=== PATIENT | female | born 1985 | race Caucasian/White ===

== ENCOUNTER → 2024-04-30 12:53 | Outpatient (REF) | payer OTHER, SELFPAY | LOC: RAD 12:53 | PROVIDERS: ATTENDING PHYSICIAN Nurse Practitioner | DX: N20.0 Calculus of kidney (principal) | CPT/HCPCS: 74176 ==

== ENCOUNTER 2024-06-07 12:28 | Inpatient (IN) | payer OTHER, SELFPAY ==
[2024-06-07 09:54] VITALS: BP 113/87; BP_SYST 80
[2024-06-07 10:40] LABS: Hematocrit 28.7 % (37.0-47.0); Hemoglobin 8.7 g/dL (12.0-16.0); Mean Corp Hgb Conc. 30.3 g/dL (33.0-37.0); Mean Corpuscular Hgb 21.4 pg (27.0-31.0); Mean Corpuscular Volume 70.5 fL (81.0-99.0); Mean Platelet Volume 10.4 fL (7.4-10.4); Platelet Count 338 10^3/uL (130-400); Red Blood Cell Count 4.07 10^6/uL (4.20-5.40); Red Cell Dist. Width 17.1 % (11.5-14.5); White Blood Cell Count 5.7 10^3/uL (4.8-10.8)
[2024-06-07 10:50] LABS: INR 1.03; PT 13.6 Sec (11.4-14.6)
[2024-06-07] MEDS: ROCEPHIN 2000 MG IV (12:10)
[2024-06-07] MEDS: STERILE WATER FOR INJECTION 20 ML IV (12:10)
[2024-06-07 15:31] VITALS: BP 110/79
--- NOTE | 2024-06-07 15:59 | HP.FOC2 ---
Focused History & Physical
Chief Complaint
HPI:
Chief Complaint: encrusted/retained left ureteral stent
HPI / Indication for Planned Procedure:
39F currently incarcerated @[facility] admitted after IR procedure earlier today for left nephrostomy tube placement.
H/o encrusted and retained ureteral stent after initial placement in 2021 (urologist @[facility]) in context of urosepsis and obstructing 4 mm left ureteral stone.
Left stent subsequently exchanged - but due to social factors and eventual incarceration, she had no urologic F/U.
Seen by me in 2022 w/ retained left ureteral stent and rUTIs.
05/02/23: s/p cystolitholapaxy (fragmented of bladder stone around distal curl, laser transection of distal curl), left URS/laser lithotripsy, 2nd left ureteral stent placement.
Unable to F/U due to being discharged from incarceration w/o reliable contact information.
Re-incarcerated @[facility] in early 2023.
CT imaging demonstrated severe left hydronephrosis, left ureteral stents x2, 4 mm left ureteral stone, and bladder stone (distal curls of stents).
MDR UTIs (ESBL) noted on prior UCx.
Relevant Past Medical History: Other (nephrolithiasis, rUTIs)
Relevant Social History: Substance Abuse and Tobacco Use
Relevant Family History: Negative
Relevant Past Surgical History: Negative
Review of Systems
Review of Pertinent Systems: All Systems Negative
Medication
See Medication form for detailed medications: Yes
Medication List (including Herbals & OTC):
mirtazapine 15 mg tablet (Remeron) 15 mg PO HS 04/28/23
nitrofurantoin monohydrate/macrocrystals 100 mg capsule (Macrobid) 100 mg PO BID 04/28/23
buprenorphine HCl 8 mg sublingual tablet 16 mg sublingual DAILY 05/29/24
famotidine 20 mg tablet 20 mg PO BID PRN heartburn 05/29/24
acetaminophen 325 mg tablet 325 mg PO ONCE PRN pain 06/05/24
hydroxyzine pamoate 50 mg capsule 50 mg PO BID PRN anxiety 06/05/24
Medications Reviewed: Yes
Allergies and Reactions
Patient has Allergies: No
Noted Allergies and Reactions:
Allergy/AdvReac Type Severity Reaction Status Date / Time
No Known Allergies Allergy Verified 05/29/24 15:02
Pertinent Physical Exam
All Other Systems: Negative
Head/Neck: Normal
Lungs: Normal
Heart: Normal
Abdomen: Normal
Extremities: Normal
Neurological: Normal
Diagnosis / Assessment
Severe left hydronephrosis w/ parenchymal thinning
Encrusted/retained left ureteral stent
Bladder stone
s/p IR placement of left PCN today (06/07)
Plan / Procedure
- Admit to Urology
- regular diet, NPO@MN
- analgesics prn
- Maintain left nephrostomy to drainage bag
- ID consult for antibiosis guidance
- To OR tomorrow afternoon for cystolitholapaxy, laser lithotripsy
D/w patient in room this afternoon.
D/w RN.
Anesthesia/Sedation to be done by Anesthesia Provider: Yes
[2024-06-07] MEDS: ULTRAM 50 MG PO ×2 (16:44→23:02)
--- NOTE | 2024-06-07 17:05 | CON.ID ---
Consultation
-
Date/Time Consultation Requested: 06/07/2024 1605
Date/Time Consultation Performed: 06/07/2024 1650
Requesting Provider: Dr. Chakraborty
Performing Provider: Dr. Rivas
Reason for Consultation: Hx ESBL E. coli; retained ureteral stents
Chief Complaint / Past History
History of Present Illness
Karen Waddell is a 39-year-old female being evaluated the request of Dr. Chakraborty regarding a history of ESBL E. coli and retained ureteral stents. History is obtained from chart review, along with patient interview.
The patient reports that she developed obstructive uropathy approximately 2 years ago and was seen at [facility] where stents were placed. The initial stent was changed approximately 3 months later, but that stent appears to have remained
in place. Unfortunately, she had no urologic follow-up thereafter, and was eventually incarcerated. She was seen by Urology here at [facility] and underwent cystolitholapaxy withfragmented of bladder stone around distal curl, laser
transection of distal curl. She again was lost to follow-up following discharge and subsequent incarceration. She was reincarcerated in 2023 and has again been evaluated by urology and requires stent removal. Today, a left PCN was placed in
anticipation of surgery tomorrow to remove the ureteral stent.
At present, she denies any fevers or chills. She notes that she has been on chronic Macrobid at least since January in order to keep the infection at bay. She denies any current fevers or chills. She denies any dysuria. She denies any significant
back discomfort.
Past History
Additional Past Medical History:
Obstructive uropathy
Nephrolithiasis
Additional Past Surgical History:
Ureteral stent placement
Tubal ligation
Allergy History:
No Known Allergies Allergy (Verified 05/29/24 15:02)
Medications Reviewed: Yes
Current Antibiotics:
None
Social History
Tobacco: Smoker (1/2 PPD)
Alcohol: None
Drug: Former User
Personal: Single
Living: Group Home
Employment: Not Employed
Family History
Family History: Not Pertinent
Review of Systems
Vital Signs
Temp Pulse Resp BP Pulse Ox
98.5 F 87 15 110/79 99
06/07/24 15:31 06/07/24 15:31 06/07/24 15:31 06/07/24 15:31 06/07/24 15:31
Physical Exam
Physical Exam
Constitutional: No Acute Distress, Comfortable and Non-toxic
Head: Normocephalic
Eyes: Pupils Equal, Pupils Round, No Conjunctival Hemorrhage and Sclera Anicteric
Pharynx: Benign
Oral: Poor Dentition, No Thrush and No Ulcers
Cardiovascular: Regular Rate and S1/S2; Negative S3/S4
Pulmonary: Clear; Negative Wheezes, Rales or Rhonchi
Gastrointestinal: Soft, Non Tender, Non Distended and Normal Bowel Sounds
Genito-Urinary: Other (left PCN in place. Scant urine.); Negative Ray
Extremities: Negative Edema, Cyanosis or Erythema
Skin: Warm and Dry; Negative Rash or Jaundice
Neurological: Awake and Alert
Psychological: Calm
.
Lab / Diagnostic Study Results
06/07/24 10:29
PT 13.6 Sec (11.4-14.6) 06/07/24 10:29
INR 1.03 06/07/24 10:29
Microbiology Results
Micro:
06/07/24 12:30 Urine Culture - Pending
Urine
Wound/abscess/other Cult Final 05/06/23-9
Escherichia coli - ESBL*
Enterococcus faecalis
Organism 1 Escherichia coli - ESBL
Organism 2 Enterococcus faecalis
EC-ESBL ENTFCL
M.I.C. RX M.I.C. RX
--------- --- --------- ---
Amoxicillin/Potas. Clavulanate 16/8 I
Ampicillin >16 R <=2 S
Ampicillin/Sulbactam >16/8 R
Cefazolin >16 R
Cefepime >16 R
Ceftazidime >16 R
Ceftriaxone >2 R
Ertapenem <=0.5 S
Ciprofloxacin >2 R
Gentamicin <=4 S
Gentamicin Synergy Screen <=500 S
Levofloxacin >4 R
Meropenem <=1 S
Piperacillin/Tazobactam <=16 S
Tobramycin <=4 S
Trimethoprim/Sulfamethoxazole > R
Vancomycin 2 S
Imaging:
04/30/2024 CT abdomen/pelvis without contrast: Severe left hydronephrosis with cortical atrophy and surrounding inflammatory changes of the left kidney and proximal left ureter. One stent is malpositioned, with the proximal pigtail positioned in an
upper pole calyx and the distal aspect of the stent terminating in the distal ureter. The other left ureteral stent has its proximal portion positioned within the pelvis, however the distal portion within the bladder has significant
encrustation/calcification.
Assessment / Plan
Severe hydronephrosis
Encrusted/retained left ureteral stent
Recurrent urinary tract infections
Hx MDRO (ESBL E. coli)
Bladder stone
Hx obstructive uropathy
Nephrolithiasis
Recommendations:
Given history of ESBL, will begin meropenem in anticipation of tomorrow surgery.
Current urine culture is pending to guide further antimicrobial selection and potential de-escalation.
Monitor white count and temperature curve.
Further recommendations as additional data is returned.
Care Review
Plan reviewed with: Physician (Urology)
[2024-06-07] MEDS: ROXICODONE 5 MG PO (20:05)
[2024-06-07] MEDS: REMERON 15 MG PO (21:07)
[2024-06-07 23:00] VITALS: BP 123/76
[2024-06-07] MEDS: TYLENOL 650 MG PO (23:02)
[2024-06-07] MEDS: NSS 1000 IV (23:05)
[2024-06-08 00:09] LABS: Blood Urea Nitrogen 15 mg/dl (7-17); Calcium 9.5 mg/dl (8.4-10.2); Carbon Dioxide 22 mmol/L (22-30); Chloride 102 mmol/L (98-107); Estimated Creatinine Clearance 64 ml/min; Glucose 119 mg/dl (70-99); Potassium 5.1 mmol/L (3.5-5.1); Sodium 140 mmol/L (135-145); eGFR > 60.00
[2024-06-08 03:26] VITALS: BP 115/80
[2024-06-08] MEDS: ROXICODONE 5 MG PO ×3 (03:32→22:33)
[2024-06-08] MEDS: TYLENOL 1000 MG PO (03:35)
--- NOTE | 2024-06-08 03:56 | PTCARENOTE ---
at 2300 pt had a fever of 102.7. PRN 650 mg of tylenol was given. AT 0300 temperature was checked again and elevated at 100.2. SUMMER CHILD CAREGIVER made aware. stat order of 1000mg of tylenol ordered. cold compress applied to back of neck and PRN pain meds given. Pt
now resting. will continue to monitor.
[2024-06-08 07:15] LABS: % Basophils 0.3 % (0-2); % Eosinophils 0.3 % (0-6); % Immature Granulocytes 0.3 % (0-0.5); % Lymphocytes 8.4 % (20.5-51.1); % Neutrophils 85.7 % (42.2-75.2); Absolute Immature Granulocytes 0.1 10^3/uL (0-0.05); Absolute Lymphocytes 1.3 10^3/uL (1.2-3.4); Absolute Monocytes 0.7 10^3/uL (0.1-0.6); Absolute Neutrophils 12.8 10^3/uL (1.4-6.5); Hematocrit 28.7 % (37.0-47.0); Hemoglobin 8.8 g/dL (12.0-16.0); Mean Corp Hgb Conc. 30.7 g/dL (33.0-37.0); Mean Corpuscular Hgb 21.5 pg (27.0-31.0); Mean Platelet Volume 10.6 fL (7.4-10.4); Nucleated Red Blood Cells % 0 %; Platelet Count 349 10^3/uL (130-400); Red Cell Dist. Width 17.2 % (11.5-14.5); White Blood Cell Count 14.9 10^3/uL (4.8-10.8)
[2024-06-08] MEDS: SUBUTEX 16 MG SL (07:19)
[2024-06-08 07:25] VITALS: BP 99/61
[2024-06-08 07:42] LABS: Blood Urea Nitrogen 16 mg/dl (7-17); Carbon Dioxide 22 mmol/L (22-30); Chloride 102 mmol/L (98-107); Estimated Creatinine Clearance 64 ml/min; Glucose 112 mg/dl (70-99); Potassium 4.4 mmol/L (3.5-5.1); Sodium 137 mmol/L (135-145); eGFR > 60.00
--- NOTE | 2024-06-08 10:10 | CM ---
From [facility] - plan to return when medically ready
Went to IR yesterday for L neph tube placement
ID following
Call [facility] prior to d/c
Plan - return to [facility] when medically stable
R - [phone]
F - [phone]
[2024-06-08] MEDS: STERILE WATER FOR INJECTION 10 ML IV ×3 (11:23→22:28)
[2024-06-08] MEDS: MERREM 500 MG IV ×3 (11:24→22:28)
--- NOTE | 2024-06-08 11:56 | W.PN.ID1 ---
Date of Service
Date of Service: June 08, 2024
Today's Communication
Meropenem initiated. Await surgery.
Assessment / Plan
Severe hydronephrosis
Encrusted/retained left ureteral stent
Recurrent urinary tract infections
Hx MDRO (ESBL E. coli)
Bladder stone
Hx obstructive uropathy
Nephrolithiasis
Recommendations:
Given history of ESBL, meropenem initiated in anticipation of today's surgery.
Current urine culture is pending to guide further antimicrobial selection and potential de-escalation.
Monitor white count and temperature curve.
Further recommendations as additional data is returned.
Chief Complaint
-: Fever, Leukocytosis and UTI
Subjective / Review of Systems
Patient seen and examined. Feels well today, although did have some fevers overnight. Denies significant pain.
Vital Signs / Physical Exam
Vital Signs
Vital Signs
Temp Pulse Resp BP Pulse Ox
98.7 F 91 16 99/61 98
06/08/24 07:25 06/08/24 07:25 06/08/24 07:25 06/08/24 07:25 06/08/24 07:25
Physical Exam
Constitutional: No Acute Distress, Comfortable and Non-toxic
Eyes: Sclera Anicteric
Cardiovascular: S1/S2; Negative S3/S4
Pulmonary: Clear; Negative Wheezes, Rales or Rhonchi
Gastrointestinal: Soft, Non Tender and Non Distended
Genito-Urinary: Other (Left PCN in place with clear yellow urine.)
Extremities: Negative Edema, Cyanosis or Erythema
Neurological: AO x 3
Psychological: Calm
Objective Data
Lab Data
Lab Results
06/08/24 06:21
06/08/24 06:21
PT 13.6 Sec (11.4-14.6) 06/07/24 10:29
INR 1.03 06/07/24 10:29
Estimated Creat Clear 64 ml/min 06/08/24 06:21
Most recent labs reviewed.
Micro Results:
06/07/24 12:30 Urine Culture - Pending
Urine
Wound/abscess/other Cult Final 05/06/2023-1339
Escherichia coli - ESBL*
Enterococcus faecalis
Organism 1 Escherichia coli - ESBL
Organism 2 Enterococcus faecalis
EC-ESBL ENTFCL
M.I.C. RX M.I.C. RX
--------- --- --------- ---
Amoxicillin/Potas. Clavulanate 16/8 I
Ampicillin >16 R <=2 S
Ampicillin/Sulbactam >16/8 R
Cefazolin >16 R
Cefepime >16 R
Ceftazidime >16 R
Ceftriaxone >2 R
Ertapenem <=0.5 S
Ciprofloxacin >2 R
Gentamicin <=4 S
Gentamicin Synergy Screen <=500 S
Levofloxacin >4 R
Meropenem <=1 S
Piperacillin/Tazobactam <=16 S
Tobramycin <=4 S
Trimethoprim/Sulfamethoxazole >2/38 R
Vancomycin 2 S
Imaging:
04/30/2024 CT abdomen/pelvis without contrast: Severe left hydronephrosis with cortical atrophy and surrounding inflammatory changes of the left kidney and proximal left ureter. One stent is malpositioned, with the proximal pigtail positioned in an
upper pole calyx and the distal aspect of the stent terminating in the distal ureter. The other left ureteral stent has its proximal portion positioned within the pelvis, however the distal portion within the bladder has significant
encrustation/calcification.
--- NOTE | 2024-06-08 12:15 | W.SUR.PREOP ---
Pre-Operative Surgical Note
-
I have examined this patient prior to the performance of the scheduled procedure.
The patient's condition is unchanged from the time of the current History and
Physical and the patient is able to undergo the scheduled procedure.
IV Meropenem initiated by ID based on prior UCx S/S - h/o MDR UTIs.
- To OR for cystolitholapaxy, laser lithotripsy, laser amputation/fragmentation of ureteral stent(s)
- Maintain left PCN to drainage bag
- Continue IV Meropenem
D/w patient.
--- NOTE | 2024-06-08 14:30 | W.PN.URO.CBU ---
Addendum entered and electronically signed by Sekou Lovett MD 06/17/24 18:13:
No evidence of anemia - no specific diagnosis for hemoglobin/hematocrit changes noted other than post-procedural IV fluid administration and normal variability WITHOUT evidence of clinically significant bleeding (mild hematuria expected initially
s/p nephrostomy tube placement by IR).
2 SIRS criteria of fever (T >102F) and significant leukocytosis indicative of sepsis s/p left nephrostomy tube insertion in chronically infected and colonized left renal collecting system.
Original Note:
Today's Communication / Plan
-
OR plan today cancelled - will reschedule w/n 2-3 weeks
Continue IV Meropenem per ID
F/U left kidney UCx S/S
Case management consult ordered for IV antibiotic infusion @[facility]
Discussed plan of care w/ patient this afternoon.
Assessment / Plan
-
Severe left hydronephrosis secondary to encrusted/obstructed left ureteral stent
Encrusted/retained left ureteral stent
Bladder stone (formed around distal curl of stent)
H/o MDI rUTIs
Fevers
06/07: s/p left PCN placement (IR)
T 102.7 o/n
WBC >14
Cr WNL
Left kidney UCx => presumptive E. Coli (prelim)
Patient noted to have high fever w/ leukocytosis s/p PCN placement by IR for decompression of chronically obstructed left kidney.
IV Meropenem initiated by ID 06/07 based on prior MDR UCxs.
Tentative plan was for cystolitholapaxy and laser amputation/transection of distal curl(s) of left ureteral stents 06/08.
Due to concerns for potential urosepsis/bacteremia w/ instrumentation, will defer surgery today and complete treatment course of IV antibiotics as outpatient.
Diagnosis
-
Date of Service: June 09, 2024
-
Patient Diagnosis:
Severe left hydronephrosis secondary to encrusted/obstructed left ureteral stent
Encrusted/retained left ureteral stent
Bladder stone (formed around distal curl of stent)
H/o MDI rUTIs
Post Op Day:
06/07: s/p left PCN placement (IR)
Subjective
-
Febrile to 102.7 o/n requiring Tylenol.
Left PCN draining well - clearing urine.
Notes minimal appetite.
Objective
-
Vital Signs
Temp Pulse Resp BP Pulse Ox
99.0 F 108 16 120/65 97
06/09/24 01:22 06/08/24 23:27 06/08/24 23:27 06/08/24 23:27 06/08/24 23:27
Intake and Output
06/07/24 06/08/24 06/09/24
06:59 06:59 06:59
Intake Total 2060 / 2060 600 / 600
Output Total 260 / 260 550 / 550
Balance 1800 / 1800 50 / 50
Intake:
Oral fluids 1560 / 1560
IV fluids (Total) 500 / 500 600 / 600
NSS 100 / 100
Output:
Urinary Drain Output (Total) 260 / 260 250 / 250
Left Nephrostomy A 260 / 260 250 / 250
Urostomy output 300 / 300
Other:
Number of approximated MODERATE 2
amounts of urine
Number of approximated LARGE 1
amounts of urine
Physical Exam
-
General - well developed, well nourished, no acute distress
Abdomen - soft, non-tender, non-distended, left PCN draining to bag
Skin - warm & dry with no rash
Neuro - AOx3, no motor deficits
Extremities - no clubbing, no cyanosis, no edema
Care Review
Data Reviewed
Discussed with: Infectious Disease and Nursing
[2024-06-08] MEDS: TYLENOL 650 MG PO ×2 (15:41→23:02)
[2024-06-08 16:07] VITALS: BP 110/71
[2024-06-08] MEDS: NSS 1000 IV (17:25)
[2024-06-08] MEDS: REMERON 15 MG PO (22:28)
[2024-06-08 23:27] VITALS: BP 120/65
[2024-06-09] MEDS: MERREM 500 MG IV ×4 (04:24→21:25)
[2024-06-09] MEDS: STERILE WATER FOR INJECTION 10 ML IV ×4 (04:24→21:25)
[2024-06-09 07:26] LABS: % Basophils 0.5 % (0-2); % Eosinophils 2.1 % (0-6); % Immature Granulocytes 0.3 % (0-0.5); % Monocytes 8.7 % (1.7-9.3); % Neutrophils 73.4 % (42.2-75.2); Absolute Basophils 0.1 10^3/uL (0-0.2); Absolute Eosinophils 0.2 10^3/uL (0-0.7); Absolute Lymphocytes 1.4 10^3/uL (1.2-3.4); Absolute Monocytes 0.8 10^3/uL (0.1-0.6); Absolute Neutrophils 7.1 10^3/uL (1.4-6.5); Hematocrit 28.4 % (37.0-47.0); Hemoglobin 8.3 g/dL (12.0-16.0); Mean Corp Hgb Conc. 29.2 g/dL (33.0-37.0); Mean Corpuscular Hgb 21.1 pg (27.0-31.0); Mean Corpuscular Volume 72.1 fL (81.0-99.0); Mean Platelet Volume 11.1 fL (7.4-10.4); Nucleated Red Blood Cells % 0 %; Platelet Count 327 10^3/uL (130-400); Red Blood Cell Count 3.94 10^6/uL (4.20-5.40); Red Cell Dist. Width 17.2 % (11.5-14.5); White Blood Cell Count 9.6 10^3/uL (4.8-10.8)
[2024-06-09 07:36] VITALS: BP 114/71
[2024-06-09] MEDS: SUBUTEX 16 MG SL (07:47)
[2024-06-09 07:52] LABS: Blood Urea Nitrogen 14 mg/dl (7-17); Calcium 8.8 mg/dl (8.4-10.2); Carbon Dioxide 24 mmol/L (22-30); Chloride 105 mmol/L (98-107); Estimated Creatinine Clearance 80 ml/min; Glucose 87 mg/dl (70-99); Potassium 4.7 mmol/L (3.5-5.1); Sodium 142 mmol/L (135-145); eGFR > 60.00
[2024-06-09] MEDS: ULTRAM 50 MG PO ×2 (09:07→15:24)
--- NOTE | 2024-06-09 10:10 | W.PN.URO.CBU ---
Today's Communication / Plan
-
Discharge today on IV antibiotics (ID arranging for Primaxin)
Patient will follow with Dr. Lovett to make plans for removal of encrusted stone
Assessment / Plan
-
Severe left hydronephrosis secondary to encrusted/obstructed left ureteral stent
Encrusted/retained left ureteral stent
Bladder stone (formed around distal curl of stent)
H/o MDI rUTIs
Fevers
06/07: s/p left PCN placement (IR)
Cr WNL
Left kidney UCx => E. coli/Enterococcus
Patient noted to have high fever w/ leukocytosis s/p PCN placement by IR for decompression of chronically obstructed left kidney.
IV Meropenem initiated by ID 06/07 based on prior MDR UCxs.
Tentative plan was for cystolitholapaxy and laser amputation/transection of distal curl(s) of left ureteral stents 06/08.
Surgery was canceled due to concerns for complicatd UTI
Diagnosis
-
Date of Service: June 09, 2024
-
Patient Diagnosis:
Severe left hydronephrosis secondary to encrusted/obstructed left ureteral stent: s/p left nephrostomy tube placement 06/07/24
Encrusted/retained left ureteral stent
Bladder stone (formed around distal curl of stent)
H/o MDI rUTIs
Subjective
-
Comfortable
No left flank pain
Objective
-
Vital Signs
Temp Pulse Resp BP Pulse Ox
98.9 F 88 16 114/71 97
06/09/24 07:36 06/09/24 07:36 06/09/24 07:36 06/09/24 07:36 06/09/24 07:36
Intake and Output
0906/09/24 06/10/24
06:59 06:59 06:59
Intake Total 2059 / 2059 875 / 875
Output Total 260 / 260 550 / 550
Balance 1800 / 1800 325 / 325
Intake:
Oral fluids 1560 / 1560
IV fluids (Total) 500 / 500 600 / 600
NSS 100 / 100
Amount instilled into Urinary 275 / 275
Drain (Total)
Left Nephrostomy A 275 / 275
Output:
Urinary Drain Output (Total) 260 / 260 250 / 250
Left Nephrostomy A 260 / 260 250 / 250
Urostomy output 300 / 300
Other:
Number of approximated MODERATE 2
amounts of urine
Number of approximated LARGE 1
amounts of urine
Laboratory Results
06/09/24 05:09
06/09/24 05:09
Review of Systems
-
Constitutional: No Symptoms
Respiratory: No Symptoms
Cardiac: No Symptoms
Abdomen/GI: No Symptoms
Neurological: No Symptoms
Physical Exam
-
General - well developed, well nourished, no acute distress
Abdomen - soft, non-tender, no CVAT
Skin - warm & dry with no rash
Neuro - AOx3, no motor deficits
Counseling
-
Discussed with ID
Cleared for discharge today
--- NOTE | 2024-06-09 10:54 | W.PN.ID1 ---
Date of Service
Date of Service: June 09, 2024
Today's Communication
Continue meropenem. See below�
Assessment / Plan
Severe hydronephrosis
Encrusted/retained left ureteral stent
Recurrent urinary tract infections
Hx MDRO (ESBL E. coli)
Bladder stone
Hx obstructive uropathy
Nephrolithiasis
Recommendations:
Left PCN functioning appropriately.
Surgery canceled for now, but to be rescheduled within the next 2 to 3 weeks.
Case discussed with Urology.
Continue with meropenem for an additional 6 days. Infusion sheet placed on paper chart.
����������������������������������������������������������
Chief Complaint
-: Fever, Leukocytosis and UTI
Subjective / Review of Systems
Review of Systems: No Fever and No Chills
Vital Signs / Physical Exam
Vital Signs
Vital Signs
Temp Pulse Resp BP Pulse Ox
98.9 F 88 16 114/71 97
06/09/24 07:36 06/09/24 07:36 06/09/24 07:36 06/09/24 07:36 06/09/24 07:36
Physical Exam
Constitutional: No Acute Distress, Comfortable and Non-toxic
Eyes: Sclera Anicteric
Cardiovascular: S1/S2; Negative S3/S4
Pulmonary: Clear; Negative Wheezes, Rales or Rhonchi
Gastrointestinal: Soft, Non Tender and Non Distended
Genito-Urinary: Other (Left PCN in place with clear yellow urine.)
Extremities: Negative Edema, Cyanosis or Erythema
Neurological: AO x 3
Psychological: Calm
Objective Data
Lab Data
Lab Results
06/09/24 05:09
06/09/24 05:09
PT 13.6 Sec (11.4-14.6) 06/07/24 10:29
INR 1.03 06/07/24 10:29
Estimated Creat Clear 80 ml/min 06/09/24 05:09
Most recent labs reviewed.
Micro Results:
06/07/24 12:30 Urine Culture - Preliminary
Urine Escherichia coli - ESBL
Enterococcus species
Wound/abscess/other Cult Final 05/06/2023-1339
Escherichia coli - ESBL*
Enterococcus faecalis
Organism 1 Escherichia coli - ESBL
Organism 2 Enterococcus faecalis
EC-ESBL ENTFCL
M.I.C. RX M.I.C. RX
--------- --- --------- ---
Amoxicillin/Potas. Clavulanate 18/05 I
Ampicillin >16 R <=2 S
Ampicillin/Sulbactam >8 R
Cefazolin >16 R
Cefepime >16 R
Ceftazidime >16 R
Ceftriaxone >2 R
Ertapenem <=0.5 S
Ciprofloxacin >2 R
Gentamicin <=4 S
Gentamicin Synergy Screen <=500 S
Levofloxacin >4 R
Meropenem <=1 S
Piperacillin/Tazobactam <=16 S
Tobramycin <=4 S
Trimethoprim/Sulfamethoxazole >2/38 R
Vancomycin 2 S
Imaging:
04/30/2024 CT abdomen/pelvis without contrast: Severe left hydronephrosis with cortical atrophy and surrounding inflammatory changes of the left kidney and proximal left ureter. One stent is malpositioned, with the proximal pigtail positioned in an
upper pole calyx and the distal aspect of the stent terminating in the distal ureter. The other left ureteral stent has its proximal portion positioned within the pelvis, however the distal portion within the bladder has significant
encrustation/calcification.
--- NOTE | 2024-06-09 12:09 | CM ---
Plan - return to [facility] when medically stable
Clinicals and Script for IV antibiotics faxed to [facility] # [phone]
Report # [phone]
--- NOTE | 2024-06-09 14:24 | PTCARENOTE ---
patient transferred from for esbl in urine. L neph tube in place with yellow urine. pt pleasant, guards at bedside, resting, call corral in reach
[2024-06-09] MEDS: FLUSH (NSS) 2 FLUSH IV ×2 (15:19→21:26)
[2024-06-09] MEDS: REMERON 15 MG PO (21:25)
[2024-06-09 23:02] VITALS: BP 103/66
[2024-06-10] MEDS: MERREM 500 MG IV ×4 (04:12→21:45)
[2024-06-10] MEDS: STERILE WATER FOR INJECTION 10 ML IV ×4 (04:12→21:45)
[2024-06-10] MEDS: FLUSH (NSS) 2 FLUSH IV ×2 (04:13→21:46)
[2024-06-10 07:00] VITALS: BP 99/58
[2024-06-10] MEDS: SUBUTEX 16 MG SL (08:16)
--- NOTE | 2024-06-10 10:15 | W.DS.TRANS ---
DC Summary - Percolator Operator
-
Discharge Instructions:
Discharge Diagnosis/Procedures left pyonephrosis, E. Coli cUTI, encrusted/
retained left ureteral stents
Diet Regular
Activity No restrictions
Driving Restrictions As prior to admission
Bathing Restrictions None
Other Services VN
Wound Care Left nephrostomy bag teaching/care by RN prior
to discharge
Instructions:
Stand-Alone Forms:
Changes to Home Medications: No
Discharge Medications:
DC Medications w/original date entered in [employer] [facility] [employer]
mirtazapine 15 mg tablet (Remeron) 15 mg PO HS Mental Health/Anxiety 04/28/23
buprenorphine HCl 8 mg sublingual tablet 16 mg sublingual DAILY ELSIE 05/29/24
famotidine 20 mg tablet 20 mg PO BID PRN heartburn 05/29/24
acetaminophen 325 mg tablet 325 mg PO ONCE PRN pain 06/05/24
hydroxyzine pamoate 50 mg capsule 50 mg PO BID PRN anxiety 06/05/24
Home Medication Changes
Pending Results: No
--- NOTE | 2024-06-10 11:29 | CM ---
Addendum entered by Radha Sotelo 06/10/24 12:16:
Script and Clinicals faxed to [facility] again via Case Management Office Fax machine; received confirmation that Fax was sent and received
Cooking Instructor will follow up with [facility] tomorrow, 06/11/24
Addendum entered by Radha Sotelo 06/10/24 11:51:
CLINICALS AND ABX SCRIPT FAXED TWICE TO [facility]; WAS TOLD THEY DID NOT RECEIVE IT. FAX # [phone] VERIFIED. I have a fax confirmation that it was received today.
My request to e-mail the script was denied
I called again; this time I spoke with MEDICAL COORDINATOR [employer] who reported that they have to order Meropenem 500 mg for approval; they probably won't receive it until or Tue.
Please call the [facility] on Tuesday.
Patient needs a PICC line; it was not ordered.
I notified Dr. Rivas and the Urologist sales relationship manager Dr. Conroy.
Original Note:
CM called [facility] this morning; spoke with RN, Alexsander; they said the fax was not received. Clinicals and Script for IV antibiotics faxed to # [phone] again; have confirmation receipt
--- NOTE | 2024-06-10 15:25 | PTCARENOTE ---
pt with soft BP for 1500 vitals. pt stating moderate pain. nurse made urology that is following pt aware of sbp. pt with officers at bedside from correctional facility, walking her to and from the bathroom. pt with fresh sheets per pct and did
hygiene this afternoon.
[2024-06-10 15:40] VITALS: BP 96/76
[2024-06-10] MEDS: ULTRAM 50 MG PO (15:57)
--- NOTE | 2024-06-10 16:37 | W.PN.SURGUPD ---
Surgical Update
Surgical Update
Patient's transfer back to [facility] is on hold while arrangements are being made for IV antibiotic infusion at the facility
---
Patient remains stable
Minimal left flank pain with movement/deep inspiration - managed with Ultram
Left nephrostomy draining jack urine
Patient voiding volitionally
Tolerating diet
[2024-06-10] MEDS: REMERON 15 MG PO (21:45)
[2024-06-10 23:08] VITALS: BP 101/68
[2024-06-11] MEDS: MERREM 500 MG IV ×4 (03:33→21:24)
[2024-06-11] MEDS: STERILE WATER FOR INJECTION 10 ML IV ×4 (03:34→21:24)
[2024-06-11] MEDS: FLUSH (NSS) 2 FLUSH IV (03:35)
[2024-06-11 07:00] VITALS: BP 99/61
[2024-06-11] MEDS: SUBUTEX 16 MG SL (07:51)
--- NOTE | 2024-06-11 09:05 | W.PN.SURGUPD ---
Surgical Update
Surgical Update
Patient stable
No significant abdominal pain
Left percutaneous urostomy tube draining clear urine
No fever
No nausea
---
Transfer to [facility] when medical care can be provided there
--- NOTE | 2024-06-11 11:49 | CM ---
Addendum entered by Charley Goode 06/11/24 14:49:
Call from Isa at the [facility] - they cannot obtain the Meropenem from pharmacy until 06/13.
tt to Dr. Rivas who asked if they can get ertapenam.
Isa left for the day & CM spoke with Giorgio & he will check with pharmacy.
Original Note:
Spoke with Isa at [facility] [phone].
She states they have the order/script for medication Meropenem 500 mg IV Q6H.
She was inquiring if the medication could be changed to Q8H.?
Patient still needs PICC placement. tt Dr. Rivas
PLAN: Return to [facility] with IV antibiotics. [facility]
Report #: [phone] (female)
Fax #: [phone]
--- NOTE | 2024-06-11 12:43 | PN.CDI ---
CDI
- -
CDI:
Physician Documentation Request
Admit Date: 06/07/24 12:28
Dear Doctor ,
Please review the following and provide your response in the progress notes.
Clinical Indicators:
Pt admitted with Hydronephrosis /encrusted Ureteral stent/ Ecoli UTI
Progress note 06/08, ' Patient noted to have high fever w/ leukocytosis s/p PCN placement by IR for decompression of chronically obstructed left kidney. IV Meropenem initiated by ID 06/07 based on prior MDR UCxs.....Due to concerns for potential
urosepsis/bacteremia w/ instrumentation....'
On admission Tmax 102.7 , HR 109 , 06/08 Tmax 102.9, WBC 14.9, HR 108
Please clarify which of the following most accurately describes the status of the patient's infection:
Sepsis-POA
- Systemic manifestations of infection, with 2 or more SIRS criteria which include:
- Fever >100.4 degrees F or hypothermia < 96.8 degrees F
- Leukocytosis - WBC > 12,000 or leukopenia - WBC < 4,000 or > 10% bands
- Tachycardia > 90 beats per minute
- Tachypnea - RR > 20 breaths per minute or PaCO2 , 32mmHg
UTI only , Without Systemic Illness
Other
Use of terms such as suspected, likely, concern for, or probable (associated with a specific diagnosis that is being evaluated, monitored, or treated as if it exists) are acceptable and can be coded in the inpatient setting, when documented at the
time of discharge.
Thank you,
Estefanía Medina RN
CDI Specialist
[place] [facility]
Please use your independent medical judgment in providing your response.
--- NOTE | 2024-06-11 12:52 | PN.CDI ---
CDI
- -
CDI:
Physician Documentation Request
Admit Date: 06/07/24 12:28
Dear Doctor,
Please review the following and provide your response in the progress notes.
Clinical Indicators:
Pt admitted with Hydronephrosis /encrusted Ureteral stent/ Ecoli UTI s/p nephrostomy tube placement
Update 06/10 note ,' Left nephrostomy draining jack urine...'
Trended Hemoglobin/Hematocrit
06/07/24 06/08/24 06/09/24
10:29 06:21 05:09
Hgb 8.7 L 8.8 L 8.3 L
Hct 28.7 L 28.7 L 28.4 L
Please provide a diagnosis for the above labs:
Acute blood loss anemia
Other Anemia ( please specify)
Unable to determine
Use of terms such as suspected, likely, concern for, or probable (associated with a specific diagnosis that is being evaluated, monitored, or treated as if it exists) are acceptable and can be coded in the inpatient setting, when documented at the
time of discharge.
Thank you,
Estefanía Medina RN
CDI Specialist
[place] [facility]
Please use your independent medical judgment in providing your response.
--- NOTE | 2024-06-11 14:22 | W.PN.ID1 ---
Addendum entered and electronically signed by Reji Rivas DO 06/11/24 16:31:
Working with case management to obtain medications to be administered at the correctional facility. Unfortunately, the correctional facility cannot acquire meropenem for the next several days, but can acquire ertapenem.
Will change antibiotic order to ertapenem 1 g IV every 24 hours, to continue through 06/15/2024. Prescription given to case management.
Will need to add amoxicillin 500 mg p.o. 3 times daily, also to continue through 06/15/2024 to cover the Enterococcus.
Original Note:
Date of Service
Date of Service: June 11, 2024
Today's Communication
Continue abx.
Assessment / Plan
Severe hydronephrosis
Encrusted/retained left ureteral stent
Recurrent urinary tract infection
- Cultures with ESBL E. coli and Enterococcus faecalis
MDRO (ESBL E. coli)
Bladder stone
Hx obstructive uropathy
Nephrolithiasis
Recommendations:
Left PCN functioning appropriately.
Prior surgery canceled for now, but to be rescheduled within the next 2 to 3 weeks.
Case discussed with Urology.
Continue with meropenem for an additional 6 days. Infusion sheet placed on paper chart.
����������������������������������������������������������
Chief Complaint
-: Fever, Leukocytosis and UTI
Subjective / Review of Systems
Patient seen and examined. Reports no significant issues with the antibiotics.
Review of Systems: No Fever and No Chills
Vital Signs / Physical Exam
Vital Signs
Vital Signs
Temp Pulse Resp BP Pulse Ox
98.1 F 77 16 99/61 96
06/11/24 07:00 06/11/24 07:00 06/11/24 07:00 06/11/24 07:00 06/11/24 10:47
Physical Exam
Constitutional: No Acute Distress, Comfortable and Non-toxic
Eyes: Sclera Anicteric
Cardiovascular: S1/S2; Negative S3/S4
Pulmonary: Clear; Negative Wheezes, Rales or Rhonchi
Gastrointestinal: Soft, Non Tender and Non Distended
Genito-Urinary: Other (Left PCN in place with clear yellow urine.)
Extremities: Negative Edema, Cyanosis or Erythema
Neurological: AO x 3
Psychological: Calm
Objective Data
Lab Data
Lab Results
06/09/24 05:09
06/09/24 05:09
PT 13.6 Sec (11.4-14.6) 06/07/24 10:29
INR 1.03 06/07/24 10:29
Estimated Creat Clear 80 ml/min 06/09/24 05:09
Most recent labs reviewed.
Micro Results:
06/07/24 12:30 Urine Culture - Final
Urine Escherichia coli - ESBL
Enterococcus faecalis
Wound/abscess/other Cult Final 05/06/2023-1339
Escherichia coli - ESBL*
Enterococcus faecalis
Organism 1 Escherichia coli - ESBL
Organism 2 Enterococcus faecalis
EC-ESBL ENTFCL
M.I.C. RX M.I.C. RX
--------- --- --------- ---
Amoxicillin/Potas. Clavulanate 16/8 I
Ampicillin >16 R <=2 S
Ampicillin/Sulbactam >16/8 R
Cefazolin >16 R
Cefepime >16 R
Ceftazidime >16 R
Ceftriaxone >2 R
Ertapenem <=0.5 S
Ciprofloxacin >2 R
Gentamicin <=4 S
Gentamicin Synergy Screen <=500 S
Levofloxacin >4 R
Meropenem <=1 S
Piperacillin/Tazobactam <=16 S
Tobramycin <=4 S
Trimethoprim/Sulfamethoxazole > R
Vancomycin 2 S
Imaging:
04/30/2024 CT abdomen/pelvis without contrast: Severe left hydronephrosis with cortical atrophy and surrounding inflammatory changes of the left kidney and proximal left ureter. One stent is malpositioned, with the proximal pigtail positioned in an
upper pole calyx and the distal aspect of the stent terminating in the distal ureter. The other left ureteral stent has its proximal portion positioned within the pelvis, however the distal portion within the bladder has significant
encrustation/calcification.
[2024-06-11 15:15] VITALS: BP 100/61
[2024-06-11 16:18] VITALS: BP 100/61
[2024-06-11] MEDS: ULTRAM 50 MG PO (16:40)
[2024-06-11] MEDS: REMERON 15 MG PO (21:24)
[2024-06-11 22:45] VITALS: BP 94/51
[2024-06-12] MEDS: STERILE WATER FOR INJECTION 10 ML IV ×2 (03:36→10:50)
[2024-06-12] MEDS: MERREM 500 MG IV ×2 (03:37→10:49)
[2024-06-12 07:00] VITALS: BP 99/69
[2024-06-12] MEDS: SUBUTEX 16 MG SL (07:59)
--- NOTE | 2024-06-12 08:43 | CM ---
Spoke with Isa at the [facility].
She stated they cannot get the Ertapenam until tomorrow. Does not know why Vu told CM yesterday they would have the medication today.
Faxed the midline information to Isa [phone]
PLAN: Discharge back to [facility] - medication Ertapenam available by their pharmacy tomorrow.
[facility]
Report # (female): [phone]
Fax #: [phone]
--- NOTE | 2024-06-12 12:48 | W.PN.ID1 ---
Date of Service
Date of Service: June 12, 2024
Today's Communication
Continue antibiotics. See below�
Assessment / Plan
Severe hydronephrosis
Encrusted/retained left ureteral stent
Recurrent urinary tract infection
- Cultures with ESBL E. coli and Enterococcus faecalis
MDRO (ESBL E. coli)
Bladder stone
Hx obstructive uropathy
Nephrolithiasis
Recommendations:
Left PCN functioning appropriately.
Prior surgery canceled for now, but to be rescheduled within the next 2 to 3 weeks.
Case previously discussed with Urology.
Correctional facility cannot acquire meropenem. Will transition to once daily ertapenem plus oral amoxicillin.
����������������������������������������������������������
Chief Complaint
-: Fever, Leukocytosis and UTI
Subjective / Review of Systems
Review of Systems: No Fever, No Chills and No Dysuria
Vital Signs / Physical Exam
Vital Signs
Vital Signs
Temp Pulse Resp BP Pulse Ox
97.9 F 73 16 99/69 97
06/12/24 07:00 06/12/24 07:00 06/12/24 07:00 06/12/24 07:00 06/12/24 10:34
Physical Exam
Constitutional: No Acute Distress, Comfortable and Non-toxic
Eyes: Sclera Anicteric
Cardiovascular: S1/S2; Negative S3/S4
Pulmonary: Clear; Negative Wheezes, Rales or Rhonchi
Gastrointestinal: Soft, Non Tender and Non Distended
Genito-Urinary: Other (Left PCN in place with clear yellow urine.)
Extremities: Negative Edema, Cyanosis or Erythema
Neurological: AO x 3
Psychological: Calm
Objective Data
Lab Data
Lab Results
06/09/24 05:09
06/09/24 05:09
PT 13.6 Sec (11.4-14.6) 06/07/24 10:29
INR 1.03 06/07/24 10:29
Estimated Creat Clear 80 ml/min 06/09/24 05:09
Most recent labs reviewed.
Micro Results:
06/07/24 12:30 Urine Culture - Final
Urine Escherichia coli - ESBL
Enterococcus faecalis
Wound/abscess/other Cult Final 05/06/2023-1339
Escherichia coli - ESBL*
Enterococcus faecalis
Organism 1 Escherichia coli - ESBL
Organism 2 Enterococcus faecalis
EC-ESBL ENTFCL
M.I.C. RX M.I.C. RX
--------- --- --------- ---
Amoxicillin/Potas. Clavulanate 16/8 I
Ampicillin >16 R <=2 S
Ampicillin/Sulbactam >16/8 R
Cefazolin >16 R
Cefepime >16 R
Ceftazidime >16 R
Ceftriaxone >2 R
Ertapenem <=0.5 S
Ciprofloxacin >2 R
Gentamicin <=4 S
Gentamicin Synergy Screen <=500 S
Levofloxacin >4 R
Meropenem <=1 S
Piperacillin/Tazobactam <=16 S
Tobramycin <=4 S
Trimethoprim/Sulfamethoxazole >2/38 R
Vancomycin 2 S
Imaging:
04/30/2024 CT abdomen/pelvis without contrast: Severe left hydronephrosis with cortical atrophy and surrounding inflammatory changes of the left kidney and proximal left ureter. One stent is malpositioned, with the proximal pigtail positioned in an
upper pole calyx and the distal aspect of the stent terminating in the distal ureter. The other left ureteral stent has its proximal portion positioned within the pelvis, however the distal portion within the bladder has significant
encrustation/calcification.
[2024-06-12] MEDS: AMOXIL 500 MG PO ×2 (14:08→21:26)
[2024-06-12] MEDS: INVANZ 60 MG IV (14:08)
[2024-06-12 15:00] VITALS: BP 99/64
[2024-06-12] MEDS: ROXICODONE 5 MG PO (20:53)
[2024-06-12] MEDS: REMERON 15 MG PO (21:26)
[2024-06-12 23:21] VITALS: BP 102/69
[2024-06-13] MEDS: AMOXIL 500 MG PO (05:52)
[2024-06-13 07:00] VITALS: BP 149/76
[2024-06-13] MEDS: SUBUTEX 16 MG SL (08:53)
--- NOTE | 2024-06-13 10:55 | CM ---
CM called [facility] & spoke with Isa.
The Ertapenam is at [facility]
Faxed over updated clinicals to [facility] ([phone]) Confirmation received.
TT Dr. Rivas
PLAN: [facility] with IV Ertapenam until 06/15
[facility]
Report # (female): [phone]
Fax #: [phone]
[2024-06-13] MEDS: ROXICODONE 5 MG PO (11:16)
--- NOTE | 2024-06-13 12:30 | PTCARENOTE ---
[facility] called at [phone]. Multiple calls made, was put on hold, no answer and disconnected. LM with to call back. cm aware
== END 2024-06-13 12:09 | DRG 698 ==
LOC: 2 NORTH 12:28
PROVIDERS: Radiology Diagnostic Radiology; ADMITTING PHYSICIAN Surgery; CONSULT PHYSICIAN Internal Medicine Infectious Disease
PROC: 0T9430Z Drainage of Left Kidney Pelvis with Drainage Device, Percutaneous Approach (ICD-10-PCS; 2024-06-07)
DX: T83.592A Infection and inflammatory reaction due to indwelling ureteral stent, initial encounter (principal); A41.51 Sepsis due to Escherichia coli [E. coli]; A41.81 Sepsis due to Enterococcus; N13.6 Pyonephrosis; T83.122A Displacement of indwelling ureteral stent, initial encounter; Z53.8 Procedure and treatment not carried out for other reasons; N21.0 Calculus in bladder; F17.210 Nicotine dependence, cigarettes, uncomplicated; Y73.2 Prosthetic and other implants, materials and accessory gastroenterology and urology devices associated with adverse incidents
CPT/HCPCS: 50432; 80048; 85025; 85027; 85610; 87077; 87086; 87186; 99152; 99153; C1729; C1769; J1335

== ENCOUNTER → 2024-07-23 06:45 | Day surgery (SDC) | payer OTHER, SELFPAY ==
--- NOTE | 2024-07-19 13:19 | PTCARENOTE ---
Patients 06/09 [facility] 8.3- Nyla @ Dr. Coello office and Dr. Munguia notified- no further interventions indicated
== END ==
LOC: SDS 06:45
PROVIDERS: ATTENDING PHYSICIAN Surgery
DX: Z53.9 Procedure and treatment not carried out, unspecified reason (principal)

== ENCOUNTER 2024-07-28 01:05 | Inpatient (IN) | payer MEDICAID, OTHER, SELFPAY ==
[2024-07-27 22:49] VITALS: BP 108/81
[2024-07-27 23:00] VITALS: BP 108/81
[2024-07-27 23:30] LABS: Urine Albumin 1+ (Neg - Trace); Urine Bilirubin Negative (Negative); Urine Character Slightly Cloudy (Clear); Urine Color Yellow; Urine Glucose Negative (Negative); Urine Ketone Negative (Negative); Urine Leukocyte 2+ (Negative); Urine Nitrite Positive (Negative); Urine Occult Blood 1+ (Negative); Urine Urobilinogen Negative (Neg - 1+)
[2024-07-27 23:31] LABS: % Basophils 0.9 % (0-2); % Eosinophils 5.5 % (0-6); % Immature Granulocytes 0.2 % (0-0.5); % Lymphocytes 31.1 % (20.5-51.1); % Monocytes 9.4 % (1.7-9.3); % Neutrophils 52.9 % (42.2-75.2); Absolute Basophils 0.1 10^3/uL (0-0.2); Absolute Eosinophils 0.4 10^3/uL (0-0.7); Absolute Monocytes 0.6 10^3/uL (0.1-0.6); Absolute Neutrophils 3.4 10^3/uL (1.4-6.5); Hematocrit 27.4 % (37.0-47.0); Hemoglobin 8.5 g/dL (12.0-16.0); Mean Platelet Volume 10.3 fL (7.4-10.4); Nucleated Red Blood Cells % 0 %; Platelet Count 369 10^3/uL (130-400); Red Blood Cell Count 3.86 10^6/uL (4.20-5.40); Red Cell Dist. Width 16.5 % (11.5-14.5); White Blood Cell Count 6.4 10^3/uL (4.8-10.8)
[2024-07-27 23:38] LABS: Urine Red Blood Cell 16-20 /HPF (0-2); Urine White Cell 60-70 /HPF (0-5)
[2024-07-27 23:39] LABS: Urine Bacteria Many (Negative)
[2024-07-27 23:46] LABS: ALT (SGPT) 20 U/L (0-35); AST (SGOT) 22 U/L (14-36); Albumin 3.9 g/dl (3.5-5.0); Alkaline Phosphatase 96 U/L (38-126); Blood Urea Nitrogen 10 mg/dl (7-17); Calcium 8.9 mg/dl (8.4-10.2); Glucose 123 mg/dl (70-99); Potassium 4.5 mmol/L (3.5-5.1); Sodium 144 mmol/L (135-145); Total Bilirubin 0.1 mg/dl (0.2-1.3); Total Protein 6.7 g/dl (6.3-8.2)
[2024-07-27 23:54] LABS: Carbon Dioxide 26 mmol/L (22-30); Chloride 104 mmol/L (98-107); Estimated Creatinine Clearance 85 ml/min; eGFR > 60.00
--- NOTE | 2024-07-28 00:04 | ED.GENMED ---
History of Present Illness
General
Chief Complaint: Urinary Symptoms
Source: patient
Exam Limitations: none
Time Seen by Provider: 07/27/24 22:58
History of Present Illness
History of Present Illness:
This is a 39 year old female that comes in with c/o nephrostomy tube not working. States that she has not had any drainage from her Nephrostomy tube for 6 days. States that she is urinating and that she has burning with urination. States that she
has also had some diarrhea. Denies any fever, chills, chest pain, SOB, abd pain, nausea, vomiting, headache, dizziness.
Past History
Past History
ED Past Medical History: GERD, Psychiatric (Anxiety, Depression. ) and Other (Renal calculus, UTI, Hydronephrosis, Bladder stones)
ED Past Surgical History: Urological (Ureteral stent. Lithotripsy, Urostomy tube)
Social History
Tobacco: Former smoker
Alcohol: None
Personal:
Living: senior care
Review of Systems
Review of Systems
All Other Systems: ROS reviewed and negative except as documented in HPI and ROS
Constitutional: Reports no symptoms; Denies fever or chills
EENT: Reports no symptoms
Respiratory: Reports no symptoms; Denies cough or trouble breathing
Cardiac: Reports no symptoms; Denies chest pain
ABD/GI: Reports diarrhea; Denies abdominal pain, nausea or vomiting
: Reports dysuria and other (NO drainage form nephrostomy tube)
Musculoskeletal: Reports no symptoms
Skin: Reports no symptoms
Neurological: Reports no symptoms; Denies dizzy or headache
Psychiatric: Reports no symptoms
Phy Exam
General Physical Exam
General Presentation: well appearing and no apparent distress
General age: appears stated age
General Skin: warm and dry
General Habitus: normal
General Mental: alert
General Hydration: appears well hydrated
ENT Exam
ENT Exam: TM's normal, pharynx normal and neck supple
Eye Exam
Eye Exam: EOMI
Cardiovascular Exam
Cardiovascular Exam: regular rate/rhythm, no edema, no murmur and normal peripheral pulses
Pulmonary Exam
Pulmonary Exam: lungs clear, no respiratory distress, no rales, chest non tender, no crackles, no rhonchi, no wheezing and no cough
Gastrointestinal Exam
Gastrointestinal Exam: normal bowel sounds, non tender, soft, no organomegaly, no pulsatile mass and non distended
Musculoskeletal Exam
Musculoskeletal Exam: full ROM and no edema
Skin Exam
Skin Exam: normal color, warm/dry, no rash, no petechia and other (Nephrostomy tube note left lower back. Site clean and dry)
Psychiatric Exam
Psychiatric Exam: normal mood/affect
Course
Orders/Labs/Results
Orders:
Orders
07/27/24 23:05
Urinalysis Reflex To Culture Urgent
Date Specimen was Collected: 07/27/24
Time Specimen was Collected: 23:05
Urine Microscopic Reflex Cult Urgent
Urine Culture Urgent
LIVAN Source: U
Specimen Description:
Date Specimen was Collected: 07/27/24
Time Specimen was Collected: 23:05
07/27/24 23:22
CMP [Comprehensive Metabolic Panel] Urgent
Complete Blood Count/With Diff Urgent
07/28/24 00:01
Meropenem [Merrem] 1,000 mg IV NOW STA
Abnormal Lab Results
07/27/24 07/27/24
23:05 23:22
RBC 3.86 L 10^6/uL
(4.20-5.40)
Hgb 8.5 L g/dL
(12.0-16.0)
Hct 27.4 L %
(37.0-47.0)
MCV 71.0 L fL
(81.0-99.0)
MCH 22.0 L pg
(27.0-31.0)
MCHC 31.0 L g/dL
(33.0-37.0)
RDW 16.5 H %
(11.5-14.5)
Monocytes % 9.4 H %
(1.7-9.3)
Glucose 123 H mg/dl
(70-99)
Total Bilirubin 0.1 L mg/dl
(0.2-1.3)
Ur Occult Blood Reflex 1+ A
(Negative)
Urine Nitrite (Reflex) Positive A
(Negative)
Leukocyte Esterase Rfl 2+ A
(Negative)
Urine RBC 16-20 A /HPF
(0-2)
Urine WBC (Reflex) 60-70 A /HPF
(0-5)
Urine Bacteria (Reflex) Many A
(Negative)
Urine Albumin (Reflex) 1+ A
(Neg - Trace)
07/27/24 23:22
07/27/24 23:22
H/H low, Hyperglycemia. Total edward slightly low. Urine positive for infection.
Vital Signs
Initial and Last Documented VS:
Initial Vital Signs
Temp Pulse Resp BP Pulse Ox
98 F 102 16 108/81 99
07/27/24 22:49 07/27/24 22:49 07/27/24 22:49 07/27/24 22:49 07/27/24 22:49
Last Documented Vital Signs
Temp Pulse Resp BP Pulse Ox
98 F 101 16 108/81 98
07/27/24 23:00 07/27/24 23:00 07/27/24 23:00 07/27/24 23:00 07/27/24 23:00
MDM/Problems Addressed
Differential Diagnosis Includes:
Nephrostomy clogged, Nephrostomy dislodged.
MDM/Problems Addressed:
This is a 39 year old female that comes in with c/o her nephrostomy tube not draining for the past [address] Weinstein. States that the patient needs IR. Patient will be admitted for IV antibiotics and have IR see patient for tube check or replacement tomorrow. Hospitalist notified.
Chronic conditions affecting care:
Nephrostmy tube Left, UTI
Acute Exacerbation and/or Progression of Chronic Illness:
UTI, Nephrostomy tube problem
*Pulse Oximetry
Patient hypoxic: no
*EKG
Interpreted by ED Provider?: NA
Rate: EKG- N/A
*Tapper Supervisor Interpretation
Rate: Tapper Supervisor- N/A
*Critical Care Note
Total Time (30-74mins, 75-104mins- exclusive of procedures): Not Applicable
ED Attending Note
-
Portions of this chart may have been created with voice recognition software.� Occasional wrong word or��sound alike� substitutions may have occurred due to the inherent limitations of voice recognition software.
Discharge Plan
Departure
Prescriptions:
No Action
mirtazapine [Remeron] 15 mg Tablet
15 mg PO HS
buprenorphine HCl 8 mg Tablet, Sublingual
16 mg SUBLINGUAL DAILY
acetaminophen 325 mg Tablet
650 mg PO TID
hydroxyzine pamoate 50 mg Capsule
50 mg PO BID PRN (Reason: anxiety)
nitrofurantoin monohyd/m-cryst 100 mg Capsule
100 mg PO BID
omeprazole 20 mg Tablet,Delayed Release (Dr/Ec)
20 mg PO DAILY
Referrals:
[facility] [Family Provider] -
Interventions
Interventions:
*General Assessment Last Done: 07/27/24 22:59
*Neglect/Abuse Screening Last Done: 07/27/24 23:01
ED- Fall Risk Assessment Last Done: 07/27/24 23:02
ED-Female Genitourinary Assessment Last Done: 07/27/24 23:31
Discharge Date and Time
Print Language: ESTONIAN
--- NOTE | 2024-07-28 00:31 | HPS.HSE ---
Family Physician
-
Family Physician: Facility [facility]
Chief Complaint
-
No drainage from urostomy tube
History of Present Illness
This is a 39-year-old female with history of nephrolithiasis who was recently admitted for encrusted/retained left ureteral stent with severe hydronephrosis status post treatment with antibiotics and placement of urostomy tube who presents to the
emergency department with reduced to no drainage from the left ureter from urostomy tube that was placed.
Patient reported that she yanked at the tube then 2 days later she started noticing that there was minimal output into the urostomy bag. She has had no flank pain. She denied fevers or chills. She had no nausea or vomiting. She otherwise also
denies any dysuria. She has no hematuria. Patient denies knowingly pulling at the tube. She completed a course of 2 weeks of nitrofurantoin about 1 week ago.
The emergency department she was afebrile. Hemodynamically stable to blood pressure of 108/81 and in no acute distress. CBC was unremarkable with chronic anemia and hemoglobin of 8.5 unchanged from prior. Chemistries BUN/creatinine were all
within normal limits. UA was positive for leukocyte esterase, nitrites, WBCs, RBCs, and squamous cells.
Medical History
Past Medical History
Past Medical History: Reports Psychiatric (nephrolithiasis)
Additional Past Medical History:
substance dependence
Past Surgical History: Reports Gynocological
Social History
Tobacco: Smoker
Alcohol: None
Drug: None
Personal: Single
Living: Alf
Employment: Not Employed
Family History
Family History: Not pertinent
Allergies / Home Medications
Allergies reflects when Allergies were last updated in [facility].
Home Medications with original date entered in [facility]
Allergy/Medication List:
Allergies
Allergy/AdvReac Type Severity Reaction Status Date / Time
No Known Allergies Allergy Verified 07/19/24 15:02
Home Medications
mirtazapine 15 mg tablet (Remeron) 15 mg PO HS Mental Health/Anxiety 04/28/23
buprenorphine HCl 8 mg sublingual tablet 16 mg sublingual DAILY ELSIE 05/29/24
acetaminophen 325 mg tablet 650 mg PO TID 06/05/24
hydroxyzine pamoate 50 mg capsule 50 mg PO BID PRN anxiety 06/05/24
nitrofurantoin monohydrate/macrocrystals 100 mg capsule 100 mg PO BID 07/19/24
omeprazole 20 mg tablet,delayed release 20 mg PO DAILY 07/19/24
Review of Systems
-
A 12 point ROS was completed and negative except as noted: Yes
Constitutional: Reports No Symptoms
EENT: Reports No Symptoms
Respiratory: Reports No Symptoms
Cardiac: Reports No Symptoms
Abdomen/GI: Reports No Symptoms
: Reports No Symptoms
Musculoskeletal: Reports No Symptoms
Skin: Reports No Symptoms
Neurological: Reports No Symptoms
Endocrine: Reports No Symptoms
Hematologic/Lymphatic: Reports No Symptoms
Psych: Reports No Symptoms
Physical Exam
Vital Signs
Vital Signs
Temp Pulse Resp BP Pulse Ox
98 F 101 16 108/81 98
07/27/24 23:00 07/27/24 23:00 07/27/24 23:00 07/27/24 23:00 07/27/24 23:00
Physical Exam
General: Well Developed, Well Nourished, No Apparent Distress, Comfortable and Conversant
HEENT: NormoCephalic, Anicteric, Moist mucous membranes and PERRLA
Respiratory: Clear
Cardiac: S1/S2 and Regular Rhythm
Breast: Deferred by me
GI: Soft, Non Tender, Non Distended and Normal Bowel Sounds
Rectal: Deferred by Provider
Genito-urinary: Turbid Urine, No costovertebral tender and Nephrostomy Tubes (No drainage from left nephrostomy tube)
Musculoskeletal: No Clubbing, No Cyanosis and No Edema
Skin: Warm
Neuro: AO x 3
Hematologic/Lymphatic: No Lymphadenopathy
Psych: Calm
Laboratory Results
-
07/27/24 23:22
07/27/24 23:22
Laboratory Results
Total Bilirubin 0.1 mg/dl (0.2-1.3) L 07/27/24 23:22
AST 22 U/L (14-36) 07/27/24 23:22
ALT 20 U/L (0-35) 07/27/24 23:22
Alkaline Phosphatase 96 U/L (38-126) 07/27/24 23:22
Data Reviewed
-
Lab Data: Labs Reviewed by me
Old Records: Reviewed
Impression/Plan
-
IMPRESSION:
39 y.o with h/o pyonephrosis s/p urostomy tube placement w/ pending surgery who did grown ESBL E. Coli s/p meropenem on that admission and recently finished a course of macrobid presents to ED with poor functioning L PCN for the last 6 days. No
output noted. She reports episode of yanking at the tube but it was not dislodged. She has been otherwise asymptomatic without flank pain, dysuria, fevers, chills, nausea or vomiting. Labs are stable. U/A remains positive.
PLAN:
1. L. PCN malfunction - Patient otherwise asymptomatic. Case d/w Dr. Weinstein.
- admit to med surg
- IR consult for tube check/replacement
- urology consultation
- urine cultures sent
- meropenem for now but no signs systemic or local of active infection
- NPO, sips of clears ok.
DVT - PPX - lovenox sq
Code Status - Full Code
[2024-07-28] MEDS: MERREM 1000 MG IV ×4 (00:42→23:46)
[2024-07-28 01:11] VITALS: BP 98/68
[2024-07-28 01:45] VITALS: BP 98/68
[2024-07-28 01:50] VITALS: BP 127/95; BMI 29.5
[2024-07-28] MEDS: MYLICON 80 MG PO (02:49)
[2024-07-28 07:00] VITALS: BP 92/60
--- NOTE | 2024-07-28 07:08 | CON.MD ---
Consultation - Medical
-
see dictated note
pt with retained/encrusted left ureteral stent
followed by dr sparrow
had left perc placed about 1 month ago for hydro/pyelo
pt reports over last several days no outpt from tube- presented to ER last night
no fever or pain/wbc nl
ua+ as expected with stent encrustation
plan
hold blood thinners
ivf and dose of antibx
IR consult for tube replacement
once tube replaced- if pt medically stable- cleared for discharge urologically and dr sparrow will reach out to expedite next procedure
[2024-07-28 07:36] LABS: Hemoglobin 8.7 g/dL (12.0-16.0); Mean Corp Hgb Conc. 31.1 g/dL (33.0-37.0); Mean Corpuscular Hgb 22.2 pg (27.0-31.0); Mean Corpuscular Volume 71.4 fL (81.0-99.0); Platelet Count 370 10^3/uL (130-400); Red Blood Cell Count 3.92 10^6/uL (4.20-5.40); Red Cell Dist. Width 16.6 % (11.5-14.5); White Blood Cell Count 6.5 10^3/uL (4.8-10.8)
[2024-07-28 07:53] LABS: Blood Urea Nitrogen 9 mg/dl (7-17); Calcium 9.2 mg/dl (8.4-10.2); Carbon Dioxide 26 mmol/L (22-30); Chloride 105 mmol/L (98-107); Estimated Creatinine Clearance 75 ml/min; Glucose 95 mg/dl (70-99); Iron 22 ug/dl (37-170); Potassium 4.8 mmol/L (3.5-5.1); Sodium 141 mmol/L (135-145); eGFR > 60.00
[2024-07-28 08:01] LABS: Percent Saturation 5 % (20-50); Total Iron Binding Capacity 388 ug/dl (265-497)
[2024-07-28] MEDS: STERILE WATER FOR INJECTION 20 ML IV ×3 (08:20→23:45)
[2024-07-28] MEDS: PROTONIX 40 MG PO (08:22)
[2024-07-28] MEDS: SUBUTEX 20 MG SL (08:26)
--- NOTE | 2024-07-28 11:19 | CON.ID ---
Consultation
-
Date/Time Consultation Requested: 07/28/2024 0152
Date/Time Consultation Performed: 07/28/2024 1120
Requesting Provider: Dr. Robin
Performing Provider: Dr. Rivas
Reason for Consultation: UTI
Chief Complaint / Past History
History of Present Illness
Karen Waddell is a 39-year-old female being evaluated the request of Dr. Robin regarding complicated urinary tract infection. History is obtained from chart review, along with patient interview. Additional history obtained from review of old
records contained in the hospital EMR system.
In brief review, the patient is known to the infectious disease service, having been seen in early June 2024. At that point in time, The patient reported that she developed obstructive uropathy approximately 2 years ago and was seen at lower
[facility] where stents were placed. The initial stent was changed approximately 3 months later, but that stent appears to have remained in place. Unfortunately, she had no urologic follow-up thereafter, and was eventually incarcerated. She
was seen by Urology here at [facility] and underwent cystolitholapaxy with fragmentation of bladder stone around distal curl, laser transection of distal curl. She again was lost to follow-up following discharge and subsequent
incarceration. She was reincarcerated in 2023.
She presented to [facility] in early June with obstructive uropathy consisting of severe left hydronephrosis secondary to encrusted and obstructed left ureteral stent. Ultimately a PCN was placed. She ultimately was discharged back to
the correctional facility to complete a course of ertapenem and amoxicillin.
She presents back to the emergency room late yesterday evening with complaints of the nephrostomy tube not functioning. She reported at that time she had not had any drainage from her nephrostomy tube for 6 days. She also admitted to dysuria,
along with some diarrhea. She notes that she was on macrobid for approximately 14 days, but recently stopped and had return of dysuria and urgency.
Past History
Additional Past Medical History:
Obstructive uropathy
Nephrolithiasis
Anxiety/depression
Additional Past Surgical History:
Ureteral stent placement
Tubal ligation
Allergy History:
No Known Allergies Allergy (Verified 07/19/24 15:02)
Medications Reviewed: Yes
Current Antibiotics:
None
Social History
Tobacco: Smoker (1/2 PPD)
Alcohol: None
Drug: Former User
Personal: Single
Living: [place]
Employment: Not Employed
Family History
Family History: Not Pertinent
Review of Systems
Vital Signs
Temp Pulse Resp BP Pulse Ox
98.0 F 78 16 92/60 99
07/28/24 07:00 07/28/24 07:00 07/28/24 07:00 07/28/24 07:00 07/28/24 08:20
Physical Exam
Physical Exam
Constitutional: No Acute Distress, Comfortable and Non-toxic
Head: Normocephalic
Eyes: Pupils Equal, Pupils Round, No Conjunctival Hemorrhage and Sclera Anicteric
Pharynx: Benign
Oral: Poor Dentition, No Thrush and No Ulcers
Cardiovascular: Regular Rate and S1/S2; Negative S3/S4
Pulmonary: Clear; Negative Wheezes, Rales or Rhonchi
Gastrointestinal: Soft, Non Tender, Non Distended and Normal Bowel Sounds
Genito-Urinary: Other (left PCN in place. Scant urine in collection bag); Negative Ray
Extremities: Negative Edema, Cyanosis or Erythema
Skin: Warm and Dry; Negative Rash or Jaundice
Neurological: Awake and Alert
Psychological: Calm
.
Lab / Diagnostic Study Results
07/28/24 06:51
07/28/24 06:51
Abs Immat Gran (auto) 0.0 10^3/uL (0-0.05) 07/27/24 23:22
Absolute Neuts (auto) 3.4 10^3/uL (1.4-6.5) 07/27/24 23:22
Absolute Lymphs (auto) 2.0 10^3/uL (1.2-3.4) 07/27/24 23:22
Absolute Monos (auto) 0.6 10^3/uL (0.1-0.6) 07/27/24 23:22
Absolute Basos (auto) 0.1 10^3/uL (0-0.2) 07/27/24 23:22
Immature Gran % 0.2 % (0-0.5) 07/27/24 23:22
Neutrophils % 52.9 % (42.2-75.2) 07/27/24 23:22
Lymphocytes % 31.1 % (20.5-51.1) 07/27/24 23:22
Monocytes % 9.4 % (1.7-9.3) H 07/27/24 23:22
Eosinophils % 5.5 % (0-6) 07/27/24 23:22
Basophils % 0.9 % (0-2) 07/27/24 23:22
PT 13.0 Sec (11.4-14.6) 07/28/24 06:51
INR 1.00 07/28/24 06:51
Ur Squamous Epith Cells 11-15 /LPF (Few) 07/27/24 23:05
Microbiology Results
Micro:
07/28/24 07:16 MRSA Screen - Pending
Nose
07/27/24 23:05 Urine Culture - Pending
Urine
Wound/abscess/other Cult Final 05/06/23-1339
Escherichia coli - ESBL*
Enterococcus faecalis
Organism 1 Escherichia coli - ESBL
Organism 2 Enterococcus faecalis
EC-ESBL ENTFCL
M.I.C. RX M.I.C. RX
--------- --- --------- ---
Amoxicillin/Potas. Clavulanate 16/8 I
Ampicillin >16 R <=2 S
Ampicillin/Sulbactam >16/8 R
Cefazolin >16 R
Cefepime >16 R
Ceftazidime >16 R
Ceftriaxone >2 R
Ertapenem <=0.5 S
Ciprofloxacin >2 R
Gentamicin <=4 S
Gentamicin Synergy Screen <=500 S
Levofloxacin >4 R
Meropenem <=1 S
Piperacillin/Tazobactam <=16 S
Tobramycin <=4 S
Trimethoprim/Sulfamethoxazole >/38 R
Vancomycin 2 S
Imaging:
04/30/2024 CT abdomen/pelvis without contrast: Severe left hydronephrosis with cortical atrophy and surrounding inflammatory changes of the left kidney and proximal left ureter. One stent is malpositioned, with the proximal pigtail positioned in an
upper pole calyx and the distal aspect of the stent terminating in the distal ureter. The other left ureteral stent has its proximal portion positioned within the pelvis, however the distal portion within the bladder has significant
encrustation/calcification.
Assessment / Plan
Nonfunctioning left PCN
Hx encrusted/retained left ureteral stent
Recurrent urinary tract infection
- Cultures with ESBL E. coli and Enterococcus faecalis
MDRO (ESBL E. coli)
Bladder stone
Hx obstructive uropathy
Nephrolithiasis
Recommendations:
Continue meropenem given prior urine cultures
Current urine culture pending.
Monitor white count and temperature curve.
Await IR evaluation of nonfunctioning left PCN.
--- NOTE | 2024-07-28 13:00 | CM ---
CM reviewed chart, guards present. Patient from [facility] - plan to return when medically ready. Call [facility] prior to d/c.
Plan - return to [facility] when medically stable
R - [phone]
F - [phone]
--- NOTE | 2024-07-28 14:02 | W.PN.IRAD.PR ---
Procedure Note
-
Left PCN replaced under fluoroscopy with new 8 Fr PCN. Initial images showed retraction of original PCN, no sig change of the 2 retained ureteral stents. PCN draining as expected post replacement. No immediate complications.
--- NOTE | 2024-07-28 14:15 | W.PN.HOSP.TC ---
Today's Communication/Plan
-
abx, f/u cultures
pcn exchange today
Assessment / Plan
Assessment / Plan
Physical Exam
General: Well Developed, Well Nourished, No Apparent Distress, Comfortable and Conversant
HEENT: NormoCephalic, Anicteric, Moist mucous membranes and PERRLA
Respiratory: Clear
Cardiac: S1/S2 and Regular Rhythm
Breast: Deferred by me
GI: Soft, Non Tender, Non Distended and Normal Bowel Sounds
Rectal: Deferred by Provider
Genito-urinary: Turbid Urine, No costovertebral tender and Nephrostomy Tubes (No drainage from left nephrostomy tube)
Musculoskeletal: No Clubbing, No Cyanosis and No Edema
Skin: Warm
Neuro: AO x 3
Hematologic/Lymphatic: No Lymphadenopathy
Psych: Calm
39 y.o with h/o pyonephrosis s/p urostomy tube placement w/ pending surgery who did grown ESBL E. Coli s/p meropenem on that admission and recently finished a course of macrobid presents to ED with poor functioning L PCN for the last 6 days. No
output noted. She reports episode of yanking at the tube but it was not dislodged. She has been otherwise asymptomatic without flank pain, dysuria, fevers, chills, nausea or vomiting. Labs are stable. U/A remains positive.
PLAN:
# L. PCN malfunction - Patient otherwise asymptomatic.
#Recurrent urinary tract infection
- IR consult for tube check/replacement - planned exchange today
- urology consultation
- urine cultures f/u
- meropenem for now
- NPO until procedure completed.
DVT - PPX - lovenox sq
Code Status - Full Code
Anticipated Discharge: Within 24 hours
Subjective/Interval History
-
Date of Service: July 28, 2024
No acute events overnight
Objective Data
-
Labs:
Laboratory Results
07/28/24
06:51
WBC 6.5
Hgb 8.7 L
Hct 28.0 L
Plt Count 370
PT 13.0
INR 1.00
Sodium 141
Potassium 4.8
Chloride 105
Carbon Dioxide 26
BUN 9
Creatinine 0.9
Glucose 95
Calcium 9.2
Vital Signs:
Vital Signs
Temp Pulse Resp BP Pulse Ox
98.0 F 78 16 92/60 99
07/28/24 07:00 07/28/24 07:00 07/28/24 07:00 07/28/24 07:00 07/28/24 08:20
Review of Systems
-
History Source: Patient
All other systems: Not reviewed unless documented
Data Reviewed
-
Labs: Labs Reviewed by me
[2024-07-28 15:00] VITALS: BP 119/77
[2024-07-28] MEDS: REMERON 15 MG PO (21:51)
[2024-07-28 23:10] VITALS: BP 106/72
[2024-07-29 07:24] LABS: Hematocrit 30.5 % (37.0-47.0); Hemoglobin 9.5 g/dL (12.0-16.0); Mean Corp Hgb Conc. 31.1 g/dL (33.0-37.0); Mean Corpuscular Hgb 22.4 pg (27.0-31.0); Mean Corpuscular Volume 71.9 fL (81.0-99.0); Mean Platelet Volume 10.7 fL (7.4-10.4); Platelet Count 395 10^3/uL (130-400); Red Blood Cell Count 4.24 10^6/uL (4.20-5.40); Red Cell Dist. Width 16.5 % (11.5-14.5); White Blood Cell Count 6.3 10^3/uL (4.8-10.8)
[2024-07-29 07:30] VITALS: BP 114/72
[2024-07-29 07:47] LABS: ALT (SGPT) 21 U/L (0-35); AST (SGOT) 23 U/L (14-36); Albumin 3.9 g/dl (3.5-5.0); Alkaline Phosphatase 114 U/L (38-126); Blood Urea Nitrogen 11 mg/dl (7-17); Calcium 9.7 mg/dl (8.4-10.2); Carbon Dioxide 28 mmol/L (22-30); Chloride 103 mmol/L (98-107); Estimated Creatinine Clearance 75 ml/min; Glucose 99 mg/dl (70-99); Potassium 5.3 mmol/L (3.5-5.1); Sodium 142 mmol/L (135-145); Total Bilirubin 0.4 mg/dl (0.2-1.3); Total Protein 6.9 g/dl (6.3-8.2); eGFR > 60.00
[2024-07-29] MEDS: MERREM 1000 MG IV (07:50)
[2024-07-29] MEDS: PROTONIX 40 MG PO (07:50)
[2024-07-29] MEDS: STERILE WATER FOR INJECTION 20 ML IV (07:50)
[2024-07-29] MEDS: SUBUTEX 20 MG SL (07:52)
--- NOTE | 2024-07-29 08:20 | W.PN.URO.CBU ---
Today's Communication / Plan
-
left perc in place
urologically cleared for discharge
Assessment / Plan
-
retained left ureteral stents
chronic UTI
hydro
left nephrotomy replaced yesterday
no wbc or fevers
okay from my standpoint for discharge- her bacteruria will not resolve until her stents are removed so as she is relative asymptomatic she may not need agrressive antibx therapy at this time
i will speak to dr sparrow about scheduling her procedure
Diagnosis
-
Date of Service: July 29, 2024
-
Patient Diagnosis:
retained left ureteral stents
malfunctioning left PCN
chronic bacteruruia
Post Op Day:
1 left nephrostomy replacement
Subjective
-
pt feels good
nephrostomy tube replaced yesterday
no fevers and nl wbc
Objective
-
Vital Signs
Temp Pulse Resp BP Pulse Ox
97.9 F 83 20 106/72 98
07/28/24 23:10 07/28/24 23:10 07/28/24 23:10 07/28/24 23:10 07/28/24 23:10
Intake and Output
07/28/24 07/29/24 07/30/24
06:59 06:59 06:59
Intake Total 1919
Output Total 175 / 175
Balance 1745 / 1745
Intake:
Oral fluids 1919
Output:
Urostomy output 175 / 175
Other:
Number of approximated MODERATE 1 3
amounts of urine
Laboratory Results
07/29/24 06:51
07/29/24 06:50
Review of Systems
-
Constitutional: No Symptoms
Respiratory: No Symptoms
Cardiac: No Symptoms
Abdomen/GI: No Symptoms
Physical Exam
-
General - no acute distress
Abdomen - soft, non-tender, left perc in place
--- NOTE | 2024-07-29 11:42 | W.PN.ID1 ---
Date of Service
Date of Service: July 29, 2024
Today's Communication
Discontinue further meropenem.
Assessment / Plan
Nonfunctioning left PCN
- s/p replacement
Hx encrusted/retained left ureteral stent
Recurrent urinary tract infection
- Cultures with ESBL E. coli and Enterococcus faecalis
MDRO (ESBL E. coli)
Bladder stone
Hx obstructive uropathy
Nephrolithiasis
Recommendations:
PCN replaced. Urine now flowing. Urine cultures noted, and continue to grow bacteria which is not unexpected given the retained nature of her stent.
Given lack of fever or white count or systemic symptomatology, no immediate need for antibiotics.
Await eventual stent removal. Will need antibiotics at that point.
����������������������������������������������������������
Chief Complaint
-: UTI
Subjective / Review of Systems
Patient seen and examined. Overall feels well.
Review of Systems: No Fever and No Chills
Vital Signs / Physical Exam
Vital Signs
Vital Signs
Temp Pulse Resp BP Pulse Ox
98.9 F 90 18 114/72 100
07/29/24 07:30 07/29/24 07:30 07/29/24 07:30 07/29/24 07:30 07/29/24 07:50
Physical Exam
Constitutional: No Acute Distress, Comfortable and Non-toxic
Eyes: Sclera Anicteric
Pulmonary: Non Labored
Genito-Urinary: Other (PCN in place with clear urine.)
Skin: Negative Rash or Jaundice
Neurological: Awake and Alert
Psychological: Calm
Objective Data
Lab Data
Lab Results
07/29/24 06:51
07/29/24 06:50
PT 13.0 Sec (11.4-14.6) 07/28/24 06:51
INR 1.00 07/28/24 06:51
Estimated Creat Clear 75 ml/min 07/29/24 06:50
Total Bilirubin 0.4 mg/dl (0.2-1.3) 07/29/24 06:50
AST 23 U/L (14-36) 07/29/24 06:50
ALT 21 U/L (0-35) 07/29/24 06:50
Alkaline Phosphatase 114 U/L (38-126) 07/29/24 06:50
Most recent labs reviewed.
Micro Results:
07/27/24 23:05 Urine Culture - Preliminary
Urine Escherichia coli
Enterococcus species
07/28/24 07:16 MRSA Screen - Final
Nose No Methicillin Resistant Staphylococcus aureus isolated.
Wound/abscess/other Cult Final 05/06/23-133
Escherichia coli - ESBL*
Enterococcus faecalis
Organism 1 Escherichia coli - ESBL
Organism 2 Enterococcus faecalis
EC-ESBL ENTFCL
M.I.C. RX M.I.C. RX
--------- --- --------- ---
Amoxicillin/Potas. Clavulanate 18/05 I
Ampicillin >16 R <=2 S
Ampicillin/Sulbactam >18/05 R
Cefazolin >16 R
Cefepime >16 R
Ceftazidime >16 R
Ceftriaxone >2 R
Ertapenem <=0.5 S
Ciprofloxacin >2 R
Gentamicin <=4 S
Gentamicin Synergy Screen <=500 S
Levofloxacin >4 R
Meropenem <=1 S
Piperacillin/Tazobactam <=16 S
Tobramycin <=4 S
Trimethoprim/Sulfamethoxazole > R
Vancomycin 2 S
Imaging:
04/30/2024 CT abdomen/pelvis without contrast: Severe left hydronephrosis with cortical atrophy and surrounding inflammatory changes of the left kidney and proximal left ureter. One stent is malpositioned, with the proximal pigtail positioned in an
upper pole calyx and the distal aspect of the stent terminating in the distal ureter. The other left ureteral stent has its proximal portion positioned within the pelvis, however the distal portion within the bladder has significant
encrustation/calcification.
Care Review
Plan reviewed with: Physician (Urology; hospitalist)
[2024-07-29] MEDS: STERILE WATER FOR INJECTION IV (12:05)
--- NOTE | 2024-07-29 12:16 | W.PN.HOSP.TC ---
Addendum entered and electronically signed by Leo Proctor MD 07/29/24 15:04:
[id number]
Original Note:
Today's Communication/Plan
-
stent exchanged
f/u urology for stent removal - will need abx at that point
F/u PCP outpatient
f/u bmp outpatient
Assessment / Plan
Assessment / Plan
Physical Exam
General: Well Developed, Well Nourished, No Apparent Distress, Comfortable and Conversant
HEENT: NormoCephalic, Anicteric, Moist mucous membranes and PERRLA
Respiratory: Clear
Cardiac: S1/S2 and Regular Rhythm
Breast: Deferred by me
GI: Soft, Non Tender, Non Distended and Normal Bowel Sounds
Rectal: Deferred by Provider
Genito-urinary: Turbid Urine, No costovertebral tender and Nephrostomy Tubes (No drainage from left nephrostomy tube)
Musculoskeletal: No Clubbing, No Cyanosis and No Edema
Skin: Warm
Neuro: AO x 3
Hematologic/Lymphatic: No Lymphadenopathy
Psych: Calm
39 y.o with h/o pyonephrosis s/p urostomy tube placement w/ pending surgery who did grown ESBL E. Coli s/p meropenem on that admission and recently finished a course of macrobid presents to ED with poor functioning L PCN for the last 6 days. No
output noted. She reports episode of yanking at the tube but it was not dislodged. She has been otherwise asymptomatic without flank pain, dysuria, fevers, chills, nausea or vomiting. Labs are stable. U/A remains positive.
PLAN:
# L. PCN malfunction - Patient otherwise asymptomatic.
#Recurrent urinary tract infection
- IR consult for tube check/replacement - s/p replacement 07/28
- urology consultation
- urine now draining
-ID consulted: no need for abx at this time due to retained nature of stent, lack of fever or wbc, or being symptomatic.
-Await eventual stent removal, will need abx at that point
#Hyperkalemia
-treat
f/u bmp outpatient
DVT - PPX - lovenox sq
Code Status - Full Code
More than 30 minutes spent in discharge including
Final examination of the patient
Summarizing hospital stay
Instructions for continuing care to all relevant caregivers
Preparation of discharge records, prescriptions, and referral forms
Total time spent (35 in minutes):
Anticipated Discharge: Today
Subjective/Interval History
-
Date of Service: July 29, 2024
No acute events overnight, PCN exchange yesterday
Objective Data
-
Labs:
Laboratory Results
07/29/24 07/29/24
06:50 06:51
WBC 6.3
Hgb 9.5 L
Hct 30.5 L
Plt Count 395
Sodium 142
Potassium 5.3 H
Chloride 103
Carbon Dioxide 28
BUN 11
Creatinine 0.9
Glucose 99
Calcium 9.7
Total Bilirubin 0.4
AST 23
ALT 21
Alkaline Phosphatase 114
Vital Signs:
Vital Signs
Temp Pulse Resp BP Pulse Ox
98.9 F 90 18 114/72 100
07/29/24 07:30 07/29/24 07:30 07/29/24 07:30 07/29/24 07:30 07/29/24 07:50
I&O
07/28/24 07/29/24 07/30/24
06:59 06:59 06:59
Intake Total 1919
Output Total 175 / 175
Balance 1745 / 1745
Review of Systems
-
History Source: Patient
All other systems: Not reviewed unless documented
Data Reviewed
-
Labs: Labs Reviewed by me
--- NOTE | 2024-07-29 12:25 | W.DS.TRANS ---
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
-
Discharge Instructions:
Discharge Diagnosis/Procedures nonfunctioning left PCN
Activity As tolerated,Other activity
Additional Activity Please ensure nephrostomy tube is safe, avoiding
any dislodgment
Blood Work CBC, BMP (potassium) in 3 days
Instructions:
Stand-Alone Forms:
Changes to Home Medications: Yes
Discharge Medications:
DC Medications w/original date entered in [facility]
mirtazapine 15 mg tablet (Remeron) 15 mg PO HS Mental Health/Anxiety 04/28/23
buprenorphine HCl 8 mg sublingual tablet 16 mg sublingual DAILY ELSIE 05/29/24
hydroxyzine pamoate 50 mg capsule 50 mg PO BID PRN anxiety 06/05/24
omeprazole 20 mg tablet,delayed release 20 mg PO DAILY 07/19/24
acetaminophen 325 mg tablet 650 mg (2 x 325 mg) PO Q4HPRN PRN mild pain/MICHELLE/temp> 100.4F #0 tabs 07/29/24
Home Medication Changes
acetaminophen 325 mg tablet 650 mg (2 x 325 mg) PO Q4HPRN PRN mild pain/MICHELLE/temp> 100.4F #0 tabs 07/29/24
Pending Results: No
--- NOTE | 2024-07-29 12:31 | CM ---
CM reviewed chart, patient from [facility] - plan to return today. CM will continue to follow for all discharge planning needs.
Plan - return to [facility].
R - [phone]
F - [phone]
[2024-07-29] MEDS: TYLENOL 650 MG PO (14:14)
== END 2024-07-29 15:19 | DRG 700 ==
LOC: 4 WEST ACU 01:05
PROVIDERS: Emergency Medicine; Radiology Vascular & Interventional Radiology; ADMITTING PHYSICIAN Internal Medicine; ATTENDING PHYSICIAN Internal Medicine; CONSULT PHYSICIAN Internal Medicine Infectious Disease; CONSULT PHYSICIAN Specialist; EMERGENCY PHYSICIAN Emergency Medicine
PROC: BT121ZZ Fluoroscopy of Left Kidney using Low Osmolar Contrast (ICD-10-PCS; 2024-07-28)
PROC: 0T25X0Z Change Drainage Device in Kidney, External Approach (ICD-10-PCS; 2024-07-28)
DX: T83.012A Breakdown (mechanical) of nephrostomy catheter, initial encounter (principal); Y84.6 Urinary catheterization as the cause of abnormal reaction of the patient, or of later complication, without mention of misadventure at the time of the procedure; Y92.149 Unspecified place in prison as the place of occurrence of the external cause; Y73.2 Prosthetic and other implants, materials and accessory gastroenterology and urology devices associated with adverse incidents; R30.0 Dysuria; R19.7 Diarrhea, unspecified; F32.A Depression, unspecified; F17.210 Nicotine dependence, cigarettes, uncomplicated; D64.9 Anemia, unspecified; F41.9 Anxiety disorder, unspecified; R82.71 Bacteriuria; E87.5 Hyperkalemia; K21.9 Gastro-esophageal reflux disease without esophagitis; Z87.442 Personal history of urinary calculi; Z87.440 Personal history of urinary (tract) infections
CPT/HCPCS: 50435; 80048; 80053; 81003; 81015; 83540; 83550; 85025; 85027; 85610; 87070; 87077; 87086; 87186; 96374; 99284; C1729; C1769; J2185

== ENCOUNTER 2024-09-03 06:39 | Day surgery (SDC) | payer OTHER, SELFPAY ==
[2024-09-03] VITALS (7 sets, daily range): BP systolic 112–138; BP diastolic 81–93; BMI 30.2
--- NOTE | 2024-09-03 11:38 | W.SUR.PREOP ---
Pre-Operative Surgical Note
-
I have examined this patient prior to the performance of the scheduled procedure.
The patient's condition is unchanged from the time of the current History and
Physical and the patient is able to undergo the scheduled procedure.
[2024-09-03] MEDS: STERILE WATER FOR INJECTION 10 ML IV (12:03)
[2024-09-03] MEDS: MERREM 500 MG IV (12:03)
[2024-09-03] MEDS: DETROL LA 4 MG PO (15:26)
[2024-09-03] MEDS: Pyridium 200 MG PO (15:26)
== END 2024-09-03 16:00 ==
LOC: SDS 06:39
PROVIDERS: ATTENDING PHYSICIAN Surgery
DX: T83.89XA Other specified complication of genitourinary prosthetic devices, implants and grafts, initial encounter (principal); Y83.1 Surgical operation with implant of artificial internal device as the cause of abnormal reaction of the patient, or of later complication, without mention of misadventure at the time of the procedure; N26.1 Atrophy of kidney (terminal); N13.2 Hydronephrosis with renal and ureteral calculous obstruction; Z16.24 Resistance to multiple antibiotics; Z87.440 Personal history of urinary (tract) infections; N21.0 Calculus in bladder
CPT/HCPCS: 52318; 52315; 93005; C1769; J2185

== ENCOUNTER 2024-10-25 16:05 | Emergency (ER) | payer OTHER, SELFPAY ==
[2024-10-25] VITALS (7 sets, daily range): BP systolic 78–150; BP diastolic 78–125
[2024-10-25] MEDS: ZOFRAN ODT (ORALLY DISINTEGRATING) 4 MG PO (16:55)
--- NOTE | 2024-10-25 16:56 | ED.GENMED ---
History of Present Illness
<Ofelia Garza DO - Last Filed: 10/25/24 16:58>
General
Chief Complaint: Catheter/Tube Problem
Time Seen by Provider: 10/25/24 16:12
<Emma Headley PA-C - Last Filed: 10/25/24 21:06>
General
Source: patient
Exam Limitations: none
Nursing documentation reviewed up to this point in time: agreed with
History of Present Illness
History of Present Illness:
Patient is a 39 y.o F w/ hx frequent UTIs, kidney stones, left nephrostomy tube presenting from care home with dislodged left nephrostomy tube. Patient states this occurred about 2 PM when it got stuck on a bed as she was getting up. Patient reports
the tube 'completely came out 'and they left it at the care home. Patient came right to the emergency department and has not urinated since tube was dislodged. However�patient states leading up to this she has had normal urination without any
symptoms of UTI. Patient denies any recent fevers or chills. She does have mild tenderness around left nephrostomy tube site although no drainage. Patient reports otherwise she is feeling well no other complaints today. Patient does have a
functioning right kidney.
Patient states she was recently followed up with her urologist, Dr. Lovett last week. Nephrostomy tube was recently placed 07/2024
Past History
<Ofelia Garza DO - Last Filed: 10/25/24 16:58>
Past History
ED Past Medical History: GERD, Psychiatric (Anxiety, Depression. ) and Other (Renal calculus, UTI, Hydronephrosis, Bladder stones)
ED Past Surgical History: Urological (Ureteral stent. Lithotripsy, Urostomy tube)
Social History
Tobacco: Former smoker
Alcohol: None
Personal:
Living: care home
Review of Systems
<Emma Headley PA-C - Last Filed: 10/25/24 21:06>
Review of Systems
Allergies reviewed?: Yes
All Other Systems: ROS reviewed and negative except as documented in HPI and ROS
Phy Exam
<Emma Headley PA-C - Last Filed: 10/25/24 21:06>
Physical Exam
Physical Exam:
Vitals: Mildly hypertensive, otherwise vital signs stable. Afebrile
General: Patient is well appearing, no acute distress. Nontoxic appearing
Skin: Warm and dry, no rashes or lesions
Head: Normocephalic, atraumatic
Eyes: Sclera nonicteric. EOMs intact. No nystagmus.
Throat: Protecting airway
Neck: Normal ROM, no cervical spine tenderness, no meningismus
Cardiac: Regular rate and rhythm, no murmurs.
Pulm: Normal respiratory effort, no wheezes, rales, rhonchi heard on exam.
Abdomen: Abdomen soft no abdominal tenderness.
Back: Absent left nephrostomy tube. No flank tenderness. No significant erythema, red streaking, drainage from nephrostomy tube site.
Extremities: No evidence of cyanosis or edema. Palpable distal pulses bilaterally
Neuro: AAOx3. Grossly
Psychiatric: Normal affect.
Course
<Ofelia Garza DO - Last Filed: 10/25/24 16:58>
Orders/Labs/Results
Orders:
Orders
10/25/24 16:47
Ondansetron Orally Disint [Zofran Odt (Orally Disintegrating)] 4 mg PO NOW STA
10/25/24 17:02
CefTRIAXone [Rocephin] 2,000 mg IV NOW STA
Sterile Water [Sterile Water For Injection] 20 ml IV NOW STA
10/25/24 17:06
Consult Interventional Radiology [IRAD CONSULT] Urgent
Consulting Provider: Tommy Lazo
Was physician already notified: Yes
Reason for Consult/Procedure: Left nephrostomy replacement
Acknowledgement that appropriate orders are entered: Yes
Vital Signs
Initial and Last Documented VS:
Initial Vital Signs
Temp Pulse Resp BP Pulse Ox
98.5 F 85 18 133/78 97
10/25/24 16:07 10/25/24 16:07 10/25/24 16:07 10/25/24 16:07 10/25/24 16:07
Last Documented Vital Signs
Temp Pulse Resp BP Pulse Ox
98.1 F 98 21 114/89 100
10/25/24 17:15 10/25/24 19:00 10/25/24 19:00 10/25/24 19:00 10/25/24 18:45
<Emma Headley PA-C - Last Filed: 10/25/24 21:06>
Orders/Labs/Results
Orders:
Orders
10/25/24 16:47
Ondansetron Orally Disint [Zofran Odt (Orally Disintegrating)] 4 mg PO NOW STA
10/25/24 17:02
CefTRIAXone [Rocephin] 2,000 mg IV NOW STA
Sterile Water [Sterile Water For Injection] 20 ml IV NOW STA
10/25/24 17:06
Consult Interventional Radiology [IRAD CONSULT] Urgent
Consulting Provider: Tommy Lazo
Was physician already notified: Yes
Reason for Consult/Procedure: Left nephrostomy replacement
Acknowledgement that appropriate orders are entered: Yes
Vital Signs
Initial and Last Documented VS:
Initial Vital Signs
Temp Pulse Resp BP Pulse Ox
98.5 F 85 18 133/78 97
10/25/24 16:07 10/25/24 16:07 10/25/24 16:07 10/25/24 16:07 10/25/24 16:07
Last Documented Vital Signs
Temp Pulse Resp BP Pulse Ox
98.1 F 98 21 114/89 100
10/25/24 17:15 10/25/24 19:00 10/25/24 19:00 10/25/24 19:00 10/25/24 18:45
<Emma Headley PA-C - Last Filed: 10/25/24 21:06>
MDM/Problems Addressed
Differential Diagnosis Includes:
Nephrostomy tube dislodgment
MDM/Problems Addressed:
39-year-old female presents from care home with displaced left nephrostomy tube occurring just prior to. No fevers, chills. Does have a functioning right kidney and produces urine. Mildly hypertensive on arrival, otherwise stable vital signs.
Patient is afebrile. Physical exam as above. Patient well-appearing, nontoxic. Absent left nephrostomy tube without any evidence of surrounding cellulitis or infection. Case was discussed with interventional radiologist on-call, Dr. Sanon who
fortunately is able to replace tube today. Patient will be transported to IR suite for nephrostomy tube replacement.
Update: Left nephrostomy tube replaced without any complications. Tube is draining urine with very minimal blood likely secondary to trauma. Patient overall well-appearing, nontoxic. Feel patient is stable for discharge back to care home with close
urology follow-up outpatient. Return precautions discussed. Case seen with attending physician
Chronic conditions affecting care:
Frequent UTIs, chronic left hydronephrosis with left nephrostomy tube
Acute Exacerbation and/or Progression of Chronic Illness:
Acute dislodgment of left nephrostomy tube
<Emma Headley PA-C - Last Filed: 10/25/24 21:06>
*Pulse Oximetry
Patient hypoxic: no
*EKG
Interpreted by ED Provider?: NA
*Veteran Appeals Reviewer Interpretation
Rate: Veteran Appeals Reviewer- N/A
*Critical Care Note
Total Time (30-74mins, 75-104mins- exclusive of procedures): Not Applicable
<Emma Headley PA-C - Last Filed: 10/25/24 21:06>
Patient Management
Discussion with other providers: Radiologist (Interventional radiology)
Escalation/DeEscalation of care consider admission/obs:
Left nephrostomy tube replaced and draining urine. Stable for discharge back to care home.
ED Attending Note
<Ofelia Garza DO - Last Filed: 10/25/24 16:58>
ED Attending Note
Patient seen and examined by attending physician: Yes
I performed the substantive portion of visit, reviewed & personally made and approve the management plan that is documented in note by myself or VLADIMIR.: Yes
I performed a history and physical exam of patient and discussed management with resident, I reviewed resident's note and agree with documented findings and plan of care.: Yes
ED Attending Note:
39-year-old female with prior history of obstructed left ureteral stent with hydronephrosis status post nephrostomy tube placement presenting after nephrostomy tube fell out. Notes that the tube fell out prior to arrival. No report of any fevers
or recent illness. Patient has been urinating appropriately, has a functioning right kidney. Urostomy tube recently replaced in July. Patient follows with nephrology, had ureteral stent procedure on 10/01. Vitals are normal.
On exam patient is well-appearing, no acute distress or discomfort. Absent left ureteral stent. No significant flank tenderness. No tenderness to the abdomen. Patient otherwise nontoxic. Will consult IR for tube replacement with ultimate plan
for outpatient follow-up and disposition home, given hemodyanmic stability
-
Portions of this chart may have been created with voice recognition software.� Occasional wrong word or��sound alike� substitutions may have occurred due to the inherent limitations of voice recognition software.
Discharge Plan
Departure
Patient Disposition: Retirement
Date of Disposition: 10/25/24
Time of Disposition: 19:04
Patient with high blood pressure during this ER visit?: Yes
Condition: Good
Covid-19: Not Applicable
Discharge Problem:
Nephrostomy tube displaced
Instructions: How to care for a nephrostomy tube, Percutaneous nephrostomy, BLOOD PRESSURE
Prescriptions:
No Action
mirtazapine [Remeron] 15 mg Tablet
15 mg PO HS
hydroxyzine pamoate 50 mg Capsule
50 mg PO BID PRN (Reason: anxiety)
omeprazole 20 mg Tablet,Delayed Release (Dr/Ec)
20 mg PO DAILY
acetaminophen 325 mg Tablet
650 mg PO Q4HPRN PRN (Reason: mild pain/MICHELLE/temp> 100.4F) Qty: 0 0RF
Uroqid-Acid No.2 500-500 mg Tablet
1 tab PO HS
buprenorphine HCl 2 mg Tablet, Sublingual
20 mg SUBLINGUAL DAILY
Referrals:
[facility],Facility [Family Provider] -
Sekou Lovett MD [Active] - Next open appointment
Activity Restrictions/Additional Instructions:
Return to the emergency department any fevers, chills, severe abdominal/back pain, intractable nausea/vomiting, urinary symptoms, lack of urine production, worsening in current symptoms, or any other concerns
-As discussed�your left nephrostomy tube was replaced while you are in the emergency department today. You should follow closely with your urologist, Dr. Lovett for further evaluation/management
-You can take Tylenol as needed for discomfort.
Monitor your symptoms closely return to the emergency department with any acute worsening/new symptoms or any other concerns
PATIENT MEDICALLY CLEARED FOR INCARCERATION
Interventions
Interventions:
*Risk Screen - Suicide Last Done: 10/25/24 16:34
*General Assessment Last Done: 10/25/24 16:34
*Neglect/Abuse Screening Last Done: 10/25/24 16:34
ED- Fall Risk Assessment Last Done: 10/25/24 16:36
*ED COVID-19 Vaccine History Last Done: 10/25/24 16:34
*Nursing Disposition Last Done: 10/25/24 19:27
PH-Dwnczp-Zutwjeqfpw Assessment Last Done: 10/25/24 16:34
ED-Female Genitourinary Assessment Last Done: 10/25/24 16:34
Discharge Date and Time
Discharge Date/Time: 10/25/24 19:28
Print Language: SYRIAC
[2024-10-25] MEDS: ROCEPHIN 2000 MG IV (17:19)
[2024-10-25] MEDS: STERILE WATER FOR INJECTION 20 ML IV (17:20)
== END 2024-10-25 19:28 ==
LOC: EMR 16:05
PROVIDERS: CONSULT PHYSICIAN Radiology Diagnostic Radiology; EMERGENCY PHYSICIAN Student in an Organized Health Care Education/Training Program
DX: T83.022A Displacement of nephrostomy catheter, initial encounter (principal); X58.XXXA Exposure to other specified factors, initial encounter; Y92.9 Unspecified place or not applicable; K21.9 Gastro-esophageal reflux disease without esophagitis; F41.8 Other specified anxiety disorders; Z87.440 Personal history of urinary (tract) infections; Z87.442 Personal history of urinary calculi; Z87.891 Personal history of nicotine dependence
CPT/HCPCS: 99282; 96374; 96375; 50435; C1729; C1769

== ENCOUNTER → 2025-03-09 10:14 | Outpatient (REF) | payer OTHER, SELFPAY | LOC: RAD 10:14 | PROVIDERS: ATTENDING PHYSICIAN Surgery; FAMILY PHYSICIAN Pediatrics Adolescent Medicine | DX: Z96.0 Presence of urogenital implants (principal) | CPT/HCPCS: 74176 ==

== ENCOUNTER 2025-04-24 14:00 | Inpatient (IN) | payer OTHER, SELFPAY ==
[2025-04-24 14:20] VITALS: BP 130/92; BMI 32.4
--- NOTE | 2025-04-24 15:00 | PTCARENOTE ---
1425-Pt received in bed AAOX3. Pt is a direct admission. Pt to floor while this aligner typewriter was on lunch. No distress noted. Provide aware pt is on the unit.
[2025-04-24 15:40] VITALS: BP 135/89
--- NOTE | 2025-04-24 16:21 | W.PN.ADMIT ---
Progress Note - Admit
Progress Note - Admit
H/o obstructed and atrophic left kidney secondary to encrusted left ureteral stent (s/p placement and exchange by prior urologist).
H/o MDR UTIs
s/p left PCN exchange 01/2025 ([facility])
Admitted for left PCN exchange by IR in anticipation of left PCNL scheduled 04/26/25.
IV Meropenem based on prior UCx sensitivities
Regular diet
NPO@MN for IR tomorrow
D/w IR.
[2025-04-24 16:45] LABS: Urine Character Slightly Cloudy (Clear)
[2025-04-24 16:52] LABS: Urine Squamous Cell 16-20 /LPF (Few)
[2025-04-24 16:58] LABS: Urine White Cell 70-80 /HPF (0-5)
[2025-04-24 17:15] LABS: Hematocrit 32.1 % (37.0-47.0); Hemoglobin 9.8 g/dL (12.0-16.0); Mean Corp Hgb Conc. 30.5 g/dL (33.0-37.0); Mean Corpuscular Volume 73.0 fL (81.0-99.0); Nucleated Red Blood Cells % 0 %; Platelet Count 359 10^3/uL (130-400); Red Cell Dist. Width 16.1 % (11.5-14.5)
[2025-04-24] MEDS: STERILE WATER FOR INJECTION 10 ML IV ×2 (17:34→23:03)
[2025-04-24] MEDS: MERREM 500 MG IV ×2 (17:34→23:03)
[2025-04-24 17:49] LABS: ALT (SGPT) 29 U/L (0-35); AST (SGOT) 23 U/L (14-36); Albumin 4.2 g/dl (3.5-5.0); Alkaline Phosphatase 132 U/L (38-126); Blood Urea Nitrogen 12 mg/dl (7-17); Calcium 9.0 mg/dl (8.4-10.2); Carbon Dioxide 27 mmol/L (22-30); Chloride 105 mmol/L (98-107); Estimated Creatinine Clearance 100 ml/min; Glucose 121 mg/dl (70-99); Potassium 4.5 mmol/L (3.5-5.1); Sodium 136 mmol/L (135-145); Total Protein 7.7 g/dl (6.3-8.2); eGFR > 60.00
[2025-04-24] MEDS: TYLENOL 650 MG PO (19:50)
[2025-04-24] MEDS: REMERON 30 MG PO (23:03)
[2025-04-24 23:12] VITALS: BP 123/85
[2025-04-24] MEDS: SENOKOT 17.2 MG PO (23:15)
[2025-04-24] MEDS: COLACE 100 MG PO (23:16)
[2025-04-24 23:27] VITALS: BP 123/85
[2025-04-25] MEDS: STERILE WATER FOR INJECTION 10 ML IV ×4 (05:37→23:00)
[2025-04-25] MEDS: MERREM 500 MG IV ×4 (05:37→23:00)
[2025-04-25] MEDS: SUBUTEX 16 MG SL (07:29)
[2025-04-25 07:45] VITALS: BP 117/83; BP_SYST 84
[2025-04-25 08:06] VITALS: BP 122/77
[2025-04-25 08:36] VITALS: BP 108/81
[2025-04-25] MEDS: TYLENOL 650 MG PO ×2 (11:57→23:00)
[2025-04-25] MEDS: COLACE 100 MG PO ×2 (11:58→19:48)
--- NOTE | 2025-04-25 12:12 | CM ---
Pt in 325-1 with guards present.
Patient from [facility] - plan to return when medically ready.
Plan - return to [facility] when medically stable
Report - [phone]
Fax- [phone]
[2025-04-25 15:00] VITALS: BP 106/71
[2025-04-25] MEDS: SENOKOT 17.2 MG PO (19:48)
[2025-04-25] MEDS: REMERON 30 MG PO (22:53)
[2025-04-25 23:09] VITALS: BP 111/75
[2025-04-26] VITALS (15 sets, daily range): BP systolic 98–129; BP diastolic 58–86; BMI 32.0
[2025-04-26] MEDS: STERILE WATER FOR INJECTION 10 ML IV ×3 (05:50→23:01)
[2025-04-26] MEDS: MERREM 500 MG IV ×3 (05:51→23:01)
[2025-04-26] MEDS: SUBUTEX 16 MG SL (07:54)
[2025-04-26] MEDS: NSS 1000 IV ×2 (08:00→22:57)
--- NOTE | 2025-04-26 08:35 | W.SUR.PREOP ---
Pre-Operative Surgical Note
-
I have examined this patient prior to the performance of the scheduled procedure.
The patient's condition is unchanged from the time of the current History and
Physical and the patient is able to undergo the scheduled procedure.
H/o encrusted left ureteral stent s/p cystolitholapaxy and transection of distal curl (previously placed by prior urologist)
H/o left hydronephrosis secondary to stent encrustation s/p left PCN
MDR rUTIs
04/25: s/p left PCN exchange by IR
On IV Meropenem x48 hrs based on prior UCx S/S
- To OR today for left PCNL
- Surgical consent to be signed in preop holding
of note, patient currently in residential rehab program - cannot return with active opioids on urine drug screen, will plan for multimodal pain regimen (NSAIDs, tylenol, local anesthetic, benzodiazepenes).
D/w patient this AM.
[2025-04-26] MEDS: TYLENOL 650 MG PO (12:30)
--- NOTE | 2025-04-26 13:58 | CM ---
Patient seen at bedside
IR today
States she resides in recovery house in [place]
PLOF: independent
Denies DME
Denies VN/SNF
PCP: States does not have - Resources given to patient for Residency clinic
PHARMACY: [facility]
PLAN: home to recovery house, no needs when stable
states will uber home
[2025-04-26] MEDS: MERREM IV (14:25)
[2025-04-26] MEDS: STERILE WATER FOR INJECTION IV (14:25)
--- NOTE | 2025-04-26 16:01 | W.IMMPOSTOP ---
Surgical Immed Post Op Note
-
Primary Surgeon: Rachell
Pre-op Diagnosis:
1. Encrusted left ureteral stent (placed by prior urologist)
2. 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
3. H/o MDR UTIs
Post-op Diagnosis: Same
Procedure Performed:
1. Left percutaneous nephroscopy and stone extraction
2. Antegrade removal of left ureteral stents (JJ) x2
3. Left renoscopy
4. Left ureteroscopy
5. Left nephrostomy tube removal
6. Left nephroureteral stent placement
7. Left nephrostomy tube placement
Anesthesia Type: GETA + 20 cc lidocaine/marcaine mixture in soft tissue
Specimen / Cultures: left ureteral stents x2 (discarded)
Estimated Blood Loss: Negligible
Drains:
1. 16Fr Ray catheter
2. 5Fr open-ended left nephroureteral stent
3. Left nephrostomy tube (20Fr Lincoln tip catheter)
Complications: None
Operative Findings: final antegrade nephrostogram w/ removal of left ureteral stents x2 and excellent flow of contrast into kidney and down ureter w/o extravasation.
[2025-04-26] MEDS: DETROL LA 4 MG PO (16:32)
[2025-04-26] MEDS: ZOFRAN 4 MG IV (16:35)
[2025-04-26] MEDS: DILAUDID 0.5 MG IV (16:57)
[2025-04-26] MEDS: REMERON 30 MG PO (21:14)
[2025-04-27 03:39] VITALS: BP 97/57
[2025-04-27] MEDS: STERILE WATER FOR INJECTION 10 ML IV (05:26)
[2025-04-27] MEDS: MERREM 500 MG IV (05:26)
[2025-04-27] MEDS: FLUSH (NSS) 2 FLUSH IV ×2 (05:28→18:04)
[2025-04-27 05:52] VITALS: BMI 32.4
[2025-04-27 06:30] LABS: Hematocrit 30.6 % (37.0-47.0); Hemoglobin 9.4 g/dL (12.0-16.0); Mean Corp Hgb Conc. 30.7 g/dL (33.0-37.0); Mean Corpuscular Volume 73.4 fL (81.0-99.0); Nucleated Red Blood Cells % 0 %; Platelet Count 380 10^3/uL (130-400); Red Cell Dist. Width 15.9 % (11.5-14.5)
[2025-04-27 07:03] LABS: Blood Urea Nitrogen 14 mg/dl (7-17); Calcium 8.8 mg/dl (8.4-10.2); Carbon Dioxide 28 mmol/L (22-30); Chloride 107 mmol/L (98-107); Estimated Creatinine Clearance 87 ml/min; Glucose 102 mg/dl (70-99); Potassium 4.9 mmol/L (3.5-5.1); Sodium 138 mmol/L (135-145); eGFR > 60.00
[2025-04-27 07:10] VITALS: BP 118/82
--- NOTE | 2025-04-27 08:00 | W.PN.URO.CBU ---
Today's Communication / Plan
-
D/c Ray catheter this AM
Maintain left PCN to drainage - plan for capping in AM 04/28
ID consult appreciated for antibiotic recommendations
Continue IV Meropenem
Non-opioid pain regimen - tylenol, ibuprofen
Assessment / Plan
-
Retained and encrusted left ureteral stents (placed by prior urologist)
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
H/o MDR UTIs
04/26: s/p left PCNL, antegrade nephroscopy/ureteroscopy, stent extraction x2, NephU catheter placement, nephrostomy exchange
Diagnosis
-
Date of Service: April 27, 2025
-
Patient Diagnosis:
Retained and encrusted left ureteral stents (placed by prior urologist)
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
H/o MDR UTIs
Post Op Day:
04/26: s/p left PCNL, antegrade nephroscopy/ureteroscopy, stent extraction x2, NephU catheter placement, nephrostomy exchange
Subjective
-
Afebrile.
Tolerating diet.
Feels well - bothered by Ray catheter.
Denies significant flank pain.
Objective
-
Vital Signs
Temp Pulse Resp BP Pulse Ox
98.7 F 86 18 118/82 95
04/27/25 07:10 04/27/25 07:10 04/27/25 07:10 04/27/25 07:10 04/27/25 07:10
Intake and Output
04/26/25 04/27/25 04/28/25
06:59 06:59 06:59
Intake Total 1340 / 1340 1780 / 1780
Output Total 700 / 700 820 / 820
Balance 640 / 640 960 / 960
Intake:
Oral fluids 1320 / 1320 480 / 480
IV fluids (Total) 1300 / 1300
Normosol 400 / 400
IV piggybacks 20
Output:
Urinary Drain Output (Total) 700 / 700 245 / 245
Left Nephrostomy 700 / 700 245 / 245
Urine, Ray 575 / 575
Other:
Number of approximated MODERATE 1 2
amounts of urine
Laboratory Results
04/27/25 06:01
04/27/25 06:01
Physical Exam
-
General - well developed, well nourished, no acute distress
Abdomen - soft, non-tender, left nephrostomy (Hankinson tip catheter) w/ clear yellow UOP
Neuro - AOx3, no motor deficits
Care Review
Data Reviewed
Discussed with: Infectious Disease, Nursing and IRAD
CT Scan: Report Pers Reviewed and Image Pers Reviewed
Total Time Spent with Patient (in minutes): 35
[2025-04-27] MEDS: SUBUTEX 16 MG SL (08:59)
[2025-04-27] MEDS: MOTRIN 800 MG PO ×2 (09:07→18:02)
--- NOTE | 2025-04-27 10:48 | CON.ID ---
Consultation
-
Date/Time Consultation Requested: 04/26/2025 1608
Date/Time Consultation Performed: 04/27/2025 1048
Requesting Provider: Dr. Lovett
Performing Provider: Dr. Rivas
Reason for Consultation: Complicated urinary tract infection
Chief Complaint / Past History
History of Present Illness
Harika Waddell is a 40-year-old female being evaluated at the request of Dr. Lovett in regards to a complicated urinary tract infection. History is obtained from chart review, along with patient interview.
In brief review, the patient is known to the Infectious Diseases service, having been seen in early June 2020 for at that point in time, the patient reported she had developed obstructive uropathy approximately 2 years prior, and was seen at
[facility] where stents were placed. The initial stents were changed approximately 3 months later, but since that time no stents have remained in place. Unfortunately, she had no urologic follow-up thereafter, and was eventually
incarcerated. She was seen by Urology here at [facility] and underwent cystolitholopaxy, with fragmentation of bladder stone around the distal curl of the stent and laser transection of the distal curl. She again was lost to follow-up
following discharge and she was subsequently incarcerated. She presented to [facility] in early June with obstructive uropathy consisting of severe left hydronephrosis secondary to encrustation and obstruction of the left ureteral
stent. Ultimately, PCN was placed and she was discharged back to the correctional facility to complete a course of ertapenem and amoxicillin.
She was last seen in June 2020 for, and at that point in time cultures revealed growth of ESBL E. coli and Enterococcus faecalis.
Since that time, she was evaluated by Urology in late September, at which time she again underwent cystoscopy, laser lithotripsy of bladder stone and encrusted left ureteral stent, and cystolitholapaxy. She notes that she was released from
incarceration in November, and has been in a recovery house since December.
She was admitted to [facility] on 04/25, and underwent exchange of a left percutaneous nephrostomy tube, and on 04/26, underwent left percutaneous nephroscopy and stone extraction, antegrade removal of left ureteral stents x 2, left renoscopy,
ureteroscopy and left nephrostomy tube placement.
Cultures have revealed the presence of MRSA and continued presence of ESBL E. coli, and Infectious Diseases assessed, and upon further antimicrobial therapy.
At present, the patient denies any prior hematuria. She denies any fevers or chills prior to admission.
Past History
Additional Past Medical History:
Obstructive uropathy
Nephrolithiasis
Anxiety/depression
Additional Past Surgical History:
Ureteral stent placement
Tubal ligation
Allergy History:
No Known Allergies Allergy (Verified 04/03/25 10:02)
Medications Reviewed: Yes
Current Antibiotics:
None
Social History
Tobacco: Smoker (10/04 PPD)
Alcohol: None
Drug: Former User
Personal: Single
Living: Other ([facility])
Employment: Not Employed
Family History
Family History: Not Pertinent
Review of Systems
Vital Signs
Temp Pulse Resp BP Pulse Ox
98.7 F 86 18 118/82 95
04/27/25 07:10 04/27/25 07:10 04/27/25 07:10 04/27/25 07:10 04/27/25 07:10
Physical Exam
Physical Exam
Constitutional: No Acute Distress, Comfortable and Non-toxic
Eyes: Sclera Anicteric
Oral: No Thrush and No Ulcers
Cardiovascular: S1/S2; Negative S3/S4
Pulmonary: Clear; Negative Wheezes or Rales
Gastrointestinal: Soft, Non Tender and Non Distended
Genito-Urinary: Other (Right percutaneous nephrostomy tube in place with clear yellow urine.)
Extremities: Negative Edema, Cyanosis or Erythema
Neurological: Awake and Alert
Psychological: Calm
Lab / Diagnostic Study Results
04/27/25 06:01
04/27/25 06:01
Abs Immat Gran (auto) 0.0 10^3/uL (0-0.05) 04/27/25 06:01
Absolute Neuts (auto) 10.6 10^3/uL (1.4-6.5) H 04/27/25 06:01
Absolute Lymphs (auto) 1.2 10^3/uL (1.2-3.4) 04/27/25 06:01
Absolute Monos (auto) 0.6 10^3/uL (0.1-0.6) 04/27/25 06:01
Absolute Basos (auto) 0.1 10^3/uL (0-0.2) 04/27/25 06:01
Immature Gran % 0.3 % (0-0.5) 04/27/25 06:01
Neutrophils % 85.0 % (42.2-75.2) H 04/27/25 06:01
Lymphocytes % 9.5 % (20.5-51.1) L 04/27/25 06:01
Monocytes % 4.6 % (1.7-9.3) 04/27/25 06:01
Eosinophils % 0.2 % (0-6) 04/27/25 06:01
Basophils % 0.4 % (0-2) 04/27/25 06:01
Ur Squamous Epith Cells 16-20 /LPF (Few) 04/24/25 16:35
Microbiology Results
Micro:
04/24/25 16:35 Urine Culture - Preliminary
Urine Klebsiella pneumoniae
Staph aureus MRSA
Escherichia coli - ESBL
Urine Culture Final 04/27/25-3
CC: 100,000 CFU/ML Escherichia coli - ESBL
CC: 100,000 CFU/ML Klebsiella pneumoniae
CC: 100,000 CFU/ML Staph aureus MRSA
Isolation Precautions Required
Called to [id number] on 04/26/25 at 1055 by LUIS
Resistance due to extended spectrum beta lactamase.
Deacreased activity may occur with penicillins,
penicillin/inhibitor combinations, cephalosporins, and
monobactams.
Organism 1 Escherichia coli - ESBL
Organism 2 Klebsiella pneumoniae
Organism 3 Staph aureus MRSA
EC-ESBL K.PNEUMO MRSA
M.I.C. RX M.I.C. RX M.I.C. RX
--------- --- --------- --- --------- ---
Amoxicillin/Potas. Clavulanate 16/8 I <=8/4 S >4/2 R
Ampicillin >16 R >16 R >8 R
Ampicillin/Sulbactam >16/8 R 8/4 S
Aztreonam >16 R <=4 S
Cefazolin >16 R <=2 S
Cefepime >16 R
Ceftazidime >16 R
Ceftriaxone >2 R
Ertapenem <=0.5 S <=0.5 S
Ciprofloxacin >2 R <=0.25 S
Gentamicin <=2 S <=2 S <=4 S
Levofloxacin >4 R
Oxacillin >2 R
Meropenem <=1 S <=1 S
Nitrofurantoin-Urine Only <=32 S 64 I <=32 S
Piperacillin/Tazobactam <=8 S <=8 S
Tetracycline >8 R <=4 S <=4 S
Tobramycin <=2 S <=2 S
Trimethoprim/Sulfamethoxazole >2/38 R <=2/38 S <=0.5/9.5 S
Vancomycin 1 S
1. Escherichia coli - ESBL
M.I.C. RX
--------- ---
Amoxicillin/Potas. Clavulanate 16/8 I
Ampicillin >16 R
Ampicillin/Sulbactam >16/8 R
Aztreonam >16 R
Cefazolin >16 R
Cefepime >16 R
Ceftazidime >16 R
Ceftriaxone >2 R
Ertapenem <=0.5 S
Ciprofloxacin >2 R
Gentamicin <=2 S
Meropenem <=1 S
Nitrofurantoin-Urine Only <=32 S
Piperacillin/Tazobactam <=8 S
Tetracycline >8 R
Tobramycin <=2 S
Trimethoprim/Sulfamethoxazole >38 R
2. Klebsiella pneumoniae
M.I.C. RX
--------- ---
Amoxicillin/Potas. Clavulanate <=8/4 S
Ampicillin >16 R
Ampicillin/Sulbactam 8/4 S
Aztreonam <=4 S
Cefazolin <=2 S
Ertapenem <=0.5 S
Ciprofloxacin <=0.25 S
Gentamicin <=2 S
Meropenem <=1 S
Nitrofurantoin-Urine Only 64 I
Piperacillin/Tazobactam <=8 S
Tetracycline <=4 S
Tobramycin <=2 S
Trimethoprim/Sulfamethoxazole <=2/38 S
3. Staph aureus MRSA
M.I.C. RX
--------- ---
Amoxicillin/Potas. Clavulanate >4/2 R
Ampicillin >8 R
Gentamicin <=4 S
Levofloxacin >4 R
Oxacillin >2 R
Nitrofurantoin-Urine Only <=32 S
Tetracycline <=4 S
Trimethoprim/Sulfamethoxazole <=0.5/9.5 S
Vancomycin 1 S
Assessment / Plan
Complicated urinary tract infection
Recent removal of encrusted/retained left ureteral stent.
Replacement of left PCN
Presence of MDRO organisms (ESBL E. coli, MRSA)
Leukocytosis
Recommendations:
Sensitivities of recovered organisms reviewed. Unfortunately, there is no unifying single antibiotic to use, and oral options are extremely limited in the treatment of recovered ESBL E. coli
For now, continue with carbapenem coverage, but transition to once daily ertapenem. Would treat at least 7-10 days.
Would continue with vancomycin for now, although may be able to transition to oral Bactrim at time of discharge.
Will need to discuss with case management regarding options for IV therapy as an outpatient.
[2025-04-27 11:00] VITALS: BP 121/78
--- NOTE | 2025-04-27 11:33 | PHA.VAN.IN ---
Assessment
- Assessment
Renal Function: Appears similar to baseline
Concomitant Antimicrobials: Ertapenem
AUC Dosing Plan
- Dosing Variables
Dosing Weight (kg): 77.7
Dosing CrCl (ml/min): 87
Vd coefficient (L/kg): 0.7
- Empiric Dosing
Initial / Loading Dose: Vancomycin 1000mg - administration pending
Maintenance Regimen: Vancomycin 1000mg IV Q12h to start at 1800
Estimated AUC (mcg*h/mL): 508
Estimated Peak (mcg*h/mL): 30.6
Estimated Trough (mcg/ml): 13.7
Estimated Half Life (H): 9
- Monitoring
No levels ordered at this time: consider levels in next few days.
Pharmacokinetics Vancomycin I
- -
Patient Age: 40
Patient Sex: Female
Vancomycin Day #: 1
Indication: Genito-Urinary Tract
Requesting Provider: Dr. Rivas
Pertinent Antimicrobial Allergies:
NKA
Height / Weight:
Height 5 ft 1 in
Actual Weight 77.7 kg
- Vital Signs / Lab Results
Temp Pulse Resp BP Pulse Ox
98.6 F 76 16 121/78 100
04/27/25 11:00 04/27/25 11:00 04/27/25 11:00 04/27/25 11:00 04/27/25 11:00
Lab Results - Hematology
04/24/25 04/27/25
17:03 06:01
WBC 9.2 12.4 H
Lab Results - Chemistry
04/24/25 04/27/25
17:03 06:01
BUN 12 14
Creatinine 0.7 0.8
Estimated Creat Clear 100 87
Albumin 4.2
Lab Results - Urine
04/24/25
16:35
Urine Nitrite (Reflex) Positive A
Leukocyte Esterase Rfl 3+ A
Urine WBC (Reflex) 70-80 A
Ur Squamous Epith Cells 16-20
Urine Bacteria (Reflex) Many A
Microbiology Results
04/24/25 16:35 Urine Culture - Final
Urine Escherichia coli - ESBL
Klebsiella pneumoniae
Staph aureus MRSA
[2025-04-27] MEDS: VANCOCIN 200 IV ×2 (11:56→18:02)
[2025-04-27] MEDS: NSS 1000 IV (11:57)
[2025-04-27] MEDS: INVANZ 60 MG IV (13:10)
[2025-04-27 15:05] VITALS: BP 102/64
[2025-04-27] MEDS: COLACE 100 MG PO (18:03)
[2025-04-27] MEDS: REMERON 30 MG PO (21:39)
[2025-04-27 23:05] VITALS: BP 114/60
[2025-04-28] MEDS: FLUSH (NSS) 2 FLUSH IV ×3 (05:21→17:14)
[2025-04-28] MEDS: VANCOCIN 200 IV ×2 (05:21→17:15)
[2025-04-28 06:28] LABS: Blood Urea Nitrogen 12 mg/dl (7-17); Calcium 8.2 mg/dl (8.4-10.2); Carbon Dioxide 29 mmol/L (22-30); Chloride 107 mmol/L (98-107); Estimated Creatinine Clearance 87 ml/min; Glucose 106 mg/dl (70-99); Hematocrit 28.4 % (37.0-47.0); Hemoglobin 8.5 g/dL (12.0-16.0); Mean Corp Hgb Conc. 29.9 g/dL (33.0-37.0); Mean Corpuscular Volume 75.3 fL (81.0-99.0); Nucleated Red Blood Cells % 0 %; Platelet Count 301 10^3/uL (130-400); Potassium 4.4 mmol/L (3.5-5.1); Red Cell Dist. Width 16.0 % (11.5-14.5); Sodium 138 mmol/L (135-145); eGFR > 60.00
[2025-04-28] MEDS: MOTRIN 800 MG PO ×3 (06:29→22:40)
[2025-04-28 07:07] VITALS: BP 112/75
[2025-04-28] MEDS: SUBUTEX 16 MG SL (08:26)
[2025-04-28] MEDS: COLACE 100 MG PO ×2 (08:30→20:32)
--- NOTE | 2025-04-28 08:56 | PHA.VAN.FU ---
Vancomycin Assessment / Plan
- Assessment
Renal Function: Stable
WBC's are: WNL
In the past 24 hrs, patient has been: Afebrile
Concomitant Antimicrobials: ertapenem
- Dosing Plan
Continue: Vanc 1000mg Q12H
- Monitoring Plan
No level(s) ordered at this time: short course anticipated with tentative discharge on TMP/SMX tomorrow
Monitoring Comments: if course extended, consider obtaining levels
- Follow Up
Pharmacy will continue to follow.
Vancomycin Follow UP
- -
Patient Age: 40
Patient Sex: Female
Vancomycin Day #: 2
Indication: Genito-Urinary Tract
Requesting Provider: Dr. Rivas
Pertinent Antimicrobial Allergies:
NKDA
Height / Weight:
Height 5 ft 1 in
Actual Weight 77.7 kg
Pertinent Past Medical History: BMI ~32
- Vital Signs / Lab Results
Temp Pulse Resp BP Pulse Ox
98.5 F 74 16 112/75 96
04/28/25 07:07 04/28/25 07:07 04/28/25 07:07 04/28/25 07:07 04/28/25 07:07
Lab Results - Hematology
04/27/25 04/28/25
06:01 05:49
WBC 12.4 H 5.8
Lab Results - Chemistry
04/27/25 04/28/25
06:01 05:49
BUN 14 12
Creatinine 0.8 0.8
Estimated Creat Clear 87 87
Microbiology Results
04/24/25 16:35 Urine Culture - Final
Urine Escherichia coli - ESBL
Klebsiella pneumoniae
Staph aureus MRSA
--- NOTE | 2025-04-28 09:42 | W.PN.ID1 ---
Date of Service
Date of Service: April 28, 2025
Today's Communication
Continue antibiotics. See below�
Assessment / Plan
Complicated urinary tract infection
Recent removal of encrusted/retained left ureteral stent.
Replacement of left PCN
Presence of MDRO organisms (ESBL E. coli, MRSA)
Leukocytosis
Recommendations:
Sensitivities of recovered organisms reviewed. Unfortunately, there is no unifying single antibiotic to use, and oral options are extremely limited in the treatment of recovered ESBL E. coli
Continue Ertapenam through 05/06/25. IV script placed on paper chart.
Would continue with vancomycin while inpatient. At D/C, transition to Bactrim DS 1 PO BID, through 05/06/25.
����������������������������������������������������������
Chief Complaint
-: UTI
Subjective / Review of Systems
Review of Systems: No Fever and No Chills
Vital Signs / Physical Exam
Vital Signs
Vital Signs
Temp Pulse Resp BP Pulse Ox
98.5 F 74 16 112/75 96
04/28/25 07:07 04/28/25 07:07 04/28/25 07:07 04/28/25 07:07 04/28/25 07:07
Physical Exam
Constitutional: No Acute Distress, Comfortable and Non-toxic
Eyes: Sclera Anicteric
Pulmonary: Non Labored
Gastrointestinal: Soft and Non Distended
Genito-Urinary: Other (left PCN with clear urine)
Extremities: Negative Edema or Cyanosis
Neurological: Awake and Alert
Psychological: Calm
Objective Data
Lab Data
Lab Results
04/28/25 05:49
04/28/25 05:49
Estimated Creat Clear 87 ml/min 04/28/25 05:49
Total Bilirubin 0.4 mg/dl (0.2-1.3) 04/24/25 17:03
AST 23 U/L (14-36) 04/24/25 17:03
ALT 29 U/L (0-35) 04/24/25 17:03
Alkaline Phosphatase 132 U/L (38-126) H 04/24/25 17:03
Most recent labs reviewed.
Micro Results:
04/24/25 16:35 Urine Culture - Final
Urine Escherichia coli - ESBL
Klebsiella pneumoniae
Staph aureus MRSA
Urine Culture Final 04/27/25-1053
CC: 100,000 CFU/ML Escherichia coli - ESBL
CC: 100,000 CFU/ML Klebsiella pneumoniae
CC: 100,000 CFU/ML Staph aureus MRSA
Isolation Precautions Required
Called to [id number] on 04/26/25 at 1055 by [employer]
Resistance due to extended spectrum beta lactamase.
Deacreased activity may occur with penicillins,
penicillin/inhibitor combinations, cephalosporins, and
monobactams.
Organism 1 Escherichia coli - ESBL
Organism 2 Klebsiella pneumoniae
Organism 3 Staph aureus MRSA
EC-ESBL K.PNEUMO MRSA
M.I.C. RX M.I.C. RX M.I.C. RX
--------- --- --------- --- --------- ---
Amoxicillin/Potas. Clavulanate 16/8 I <=8/4 S >4/2 R
Ampicillin >16 R >16 R >8 R
Ampicillin/Sulbactam >16/8 R 8/4 S
Aztreonam >16 R <=4 S
Cefazolin >16 R <=2 S
Cefepime >16 R
Ceftazidime >16 R
Ceftriaxone >2 R
Ertapenem <=0.5 S <=0.5 S
Ciprofloxacin >2 R <=0.25 S
Gentamicin <=2 S <=2 S <=4 S
Levofloxacin >4 R
Oxacillin >2 R
Meropenem <=1 S <=1 S
Nitrofurantoin-Urine Only <=32 S 64 I <=32 S
Piperacillin/Tazobactam <=8 S <=8 S
Tetracycline >8 R <=4 S <=4 S
Tobramycin <=2 S <=2 S
Trimethoprim/Sulfamethoxazole > R <=38 S <=0.5/9.5 S
Vancomycin 1 S
1. Escherichia coli - ESBL
M.I.C. RX
--------- ---
Amoxicillin/Potas. Clavulanate 18/05 I
Ampicillin >16 R
Ampicillin/Sulbactam >18/05 R
Aztreonam >16 R
Cefazolin >16 R
Cefepime >16 R
Ceftazidime >16 R
Ceftriaxone >2 R
Ertapenem <=0.5 S
Ciprofloxacin >2 R
Gentamicin <=2 S
Meropenem <=1 S
Nitrofurantoin-Urine Only <=32 S
Piperacillin/Tazobactam <=8 S
Tetracycline >8 R
Tobramycin <=2 S
Trimethoprim/Sulfamethoxazole > R
2. Klebsiella pneumoniae
M.I.C. RX
--------- ---
Amoxicillin/Potas. Clavulanate <=8/4 S
Ampicillin >16 R
Ampicillin/Sulbactam 8/4 S
Aztreonam <=4 S
Cefazolin <=2 S
Ertapenem <=0.5 S
Ciprofloxacin <=0.25 S
Gentamicin <=2 S
Meropenem <=1 S
Nitrofurantoin-Urine Only 64 I
Piperacillin/Tazobactam <=8 S
Tetracycline <=4 S
Tobramycin <=2 S
Trimethoprim/Sulfamethoxazole <=2/38 S
3. Staph aureus MRSA
M.I.C. RX
--------- ---
Amoxicillin/Potas. Clavulanate >4/2 R
Ampicillin >8 R
Gentamicin <=4 S
Levofloxacin >4 R
Oxacillin >2 R
Nitrofurantoin-Urine Only <=32 S
Tetracycline <=4 S
Trimethoprim/Sulfamethoxazole <=0.5/9.5 S
Vancomycin 1 S
Care Review
Plan reviewed with: Physician (SARAH)
--- NOTE | 2025-04-28 09:49 | W.PN.URO.CBU ---
Today's Communication / Plan
-
Please plug left PCN (catheter plug)
Continue IV Meropenem per ID
IV antibiotic therapy @home (residential facility) at time of discharge per ID
Tentative plan for d/c 04/29
Plan for left URS/stone extraction + removal of left PCN/NephU in 3 weeks
Assessment / Plan
-
Retained and encrusted left ureteral stents (placed by prior urologist)
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
H/o MDR UTIs
04/26: s/p left PCNL, antegrade nephroscopy/ureteroscopy, stent extraction x2, NephU catheter placement, nephrostomy exchange
Diagnosis
-
Date of Service: April 28, 2025
-
Patient Diagnosis:
Retained and encrusted left ureteral stents (placed by prior urologist)
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
H/o MDR UTIs
Post Op Day:
04/26: s/p left PCNL, antegrade nephroscopy/ureteroscopy, stent extraction x2, NephU catheter placement, nephrostomy exchange
Subjective
-
Denies left flank or abdominal pain.
Tolerating diet.
Voiding comfortably.
Objective
-
Vital Signs
Temp Pulse Resp BP Pulse Ox
98.5 F 74 16 112/75 96
04/28/25 07:07 04/28/25 07:07 04/28/25 07:07 04/28/25 07:07 04/28/25 07:07
Intake and Output
04/27/25 04/28/25 04/29/25
06:59 06:59 06:59
Intake Total 1780 / 1780 890 / 890
Output Total 820 / 820 1100 / 1100
Balance 960 / 960 -210 / -210
Intake:
Oral fluids 480 / 480 240 / 240
IV fluids (Total) 1300 / 1300 450 / 450
Normosol 400 / 400
IV piggybacks 200 / 200
Amount instilled into Urinary 0 / 0
Drain (Total)
Left Nephrostomy 0 / 0
Output:
Urinary Drain Output (Total) 245 / 245 1099 / 1099
Left Nephrostomy 245 / 245 1099 / 1099
Urine, Ray 575 / 575 0 / 0
Urine, Voided 0 / 0
Other:
Number of approximated MODERATE 2 3
amounts of urine
Laboratory Results
04/28/25 05:49
04/28/25 05:49
Physical Exam
-
General - well developed, well nourished, no acute distress
Abdomen - soft, non-tender, no CVAT, no incisional pain or distention, left PCN w/ clear yellow drianage (20Fr [place] tip catheter)
Skin - warm & dry with no rash
Extremities - no clubbing, no cyanosis, no edema
Incision - clean, dry
Dressing - clean, dry, intact
[2025-04-28] MEDS: INVANZ 60 MG IV (13:12)
[2025-04-28 15:05] VITALS: BP 133/85
[2025-04-28] MEDS: SENOKOT 17.2 MG PO (20:33)
[2025-04-28] MEDS: REMERON 30 MG PO (22:42)
[2025-04-28 23:08] VITALS: BP 127/82
[2025-04-29] MEDS: VANCOCIN 200 IV (05:07)
[2025-04-29 07:03] LABS: Hematocrit 29.5 % (37.0-47.0); Hemoglobin 9.0 g/dL (12.0-16.0); Mean Corp Hgb Conc. 30.5 g/dL (33.0-37.0); Mean Corpuscular Volume 74.3 fL (81.0-99.0); Nucleated Red Blood Cells % 0 %; Platelet Count 334 10^3/uL (130-400); Red Cell Dist. Width 15.9 % (11.5-14.5)
[2025-04-29 07:25] VITALS: BP 101/64
[2025-04-29 07:34] LABS: Blood Urea Nitrogen 14 mg/dl (7-17); Calcium 8.7 mg/dl (8.4-10.2); Carbon Dioxide 29 mmol/L (22-30); Chloride 105 mmol/L (98-107); Estimated Creatinine Clearance 100 ml/min; Glucose 95 mg/dl (70-99); Potassium 4.5 mmol/L (3.5-5.1); Sodium 137 mmol/L (135-145); eGFR > 60.00
--- NOTE | 2025-04-29 08:37 | PHA.VAN.FU ---
Vancomycin Assessment / Plan
- Assessment
Renal Function: Stable
WBC's are: WNL
In the past 24 hrs, patient has been: Afebrile
Concomitant Antimicrobials: ertapenem
- Dosing Plan
Continue: vancomycin 1000 mg Q12H
- Monitoring Plan
No level(s) ordered at this time: short course anticipated with tentative discharge on TMP/SMX today
Monitoring Comments: if course extended, consider obtaining levels
- Follow Up
Pharmacy will continue to follow.
Vancomycin Follow UP
- -
Patient Age: 40
Patient Sex: Female
Vancomycin Day #: 3
Indication: Genito-Urinary Tract
Requesting Provider: Dr. Rivas
Pertinent Antimicrobial Allergies:
NKDA
Height / Weight:
Height 5 ft 1 in
Actual Weight 77.7 kg
Pertinent Past Medical History: BMI ~32
- Vital Signs / Lab Results
Temp Pulse Resp BP Pulse Ox
98.0 F 65 16 101/64 100
04/29/25 07:25 04/29/25 07:25 04/29/25 07:25 04/29/25 07:25 04/29/25 07:25
Lab Results - Hematology
04/27/25 04/28/25 04/29/25
06:01 05:49 06:42
WBC 12.4 H 5.8 5.1
Lab Results - Chemistry
04/27/25 04/28/25 04/29/25
06:01 05:49 06:42
BUN 14 12 14
Creatinine 0.8 0.8 0.7
Estimated Creat Clear 87 87 100
Microbiology Results
04/24/25 16:35 Urine Culture - Final
Urine Escherichia coli - ESBL
Klebsiella pneumoniae
Staph aureus MRSA
--- NOTE | 2025-04-29 08:45 | W.PN.URO.CBU ---
Today's Communication / Plan
-
CM consult for placement options to accommodate IV antibiotic therapy
Continue IV antibiotics via PICC through 05/06
Maintain left PCN capped at discharge
F/U in 2 weeks for left ULS/stone extraction preop visit
Assessment / Plan
-
Retained and encrusted left ureteral stents (placed by prior urologist)
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
H/o MDR UTIs
04/26: s/p left PCNL, antegrade nephroscopy/ureteroscopy, stent extraction x2, NephU catheter placement, nephrostomy exchange
Per ID, IV Invanz through 05/06/25 for completion course.
[facility] (PICC and IV abx cannot be maintained at residential facility).
Plan for dispo to rehab to accommodate IV abx course.
Diagnosis
-
Date of Service: April 29, 2025
-
Patient Diagnosis:
Retained and encrusted left ureteral stents (placed by prior urologist)
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
H/o MDR UTIs
Post Op Day:
04/26: s/p left PCNL, antegrade nephroscopy/ureteroscopy, stent extraction x2, NephU catheter placement, nephrostomy exchange
Subjective
-
Afebrile.
Left PCN + NephU stent capped.
Voiding clear urine.
Dysuria improved.
Objective
-
Vital Signs
Temp Pulse Resp BP Pulse Ox
98.2 F 60 16 183/74 100
04/29/25 12:55 04/29/25 12:55 04/29/25 12:55 04/29/25 12:55 04/29/25 12:55
Intake and Output
04/28/25 04/29/25 04/30/25
06:59 06:59 06:59
Intake Total 890 / 890 1830 / 1830
Output Total 1100 / 1100 500 / 500
Balance -210 / -210 1330 / 1330
Intake:
Oral fluids 240 / 240 1080 / 1080
IV fluids (Total) 450 / 450
IV piggybacks 200 / 200 750 / 750
Amount instilled into Urinary 0 / 0
Drain (Total)
Left Nephrostomy 0 / 0
Output:
Urinary Drain Output (Total) 1100 / 1100 300 / 300
Left Nephrostomy 1100 / 1100 300 / 300
Urine, Ray 0 / 0
Urine, Voided 0 / 0 200 / 200
Other:
Number of approximated MODERATE 3 3
amounts of urine
Laboratory Results
04/29/25 06:42
04/29/25 06:42
Physical Exam
-
General - well developed, well nourished, no acute distress
Abdomen - soft, non-tender, non-distended, left flank incision c/d/i (nephrostomy tube capped)
Skin - warm & dry with no rash
Neuro - AOx3, no motor deficits
Extremities - no clubbing, no cyanosis, no edema
Counseling
-
D/w RN.
D/w patient.
[2025-04-29] MEDS: SUBUTEX 16 MG SL (08:53)
[2025-04-29] MEDS: MOTRIN 800 MG PO (09:44)
--- NOTE | 2025-04-29 10:38 | W.PN.ID1 ---
Date of Service
Date of Service: April 29, 2025
Today's Communication
Continue antibiotics. See below�
Assessment / Plan
Complicated urinary tract infection
Recent removal of encrusted/retained left ureteral stent.
Replacement of left PCN
Presence of MDRO organisms (ESBL E. coli, MRSA)
Leukocytosis
Nephrolithiasis
Recommendations:
Sensitivities of recovered organisms reviewed. Unfortunately, there is no unifying single antibiotic to use, and oral options are extremely limited in the treatment of recovered ESBL E. coli
--> Continue Ertapenam through 05/06/25. IV script placed on paper chart.
Continue with vancomycin while inpatient.
--> At D/C, transition to Bactrim DS 1 PO BID, continue through 05/06/25.
����������������������������������������������������������
Chief Complaint
-: UTI
Subjective / Review of Systems
Review of Systems: No Fever, No Chills, No Abdominal Pain and No Dysuria
Vital Signs / Physical Exam
Vital Signs
Vital Signs
Temp Pulse Resp BP Pulse Ox
98.0 F 65 16 101/64 100
04/29/25 07:25 04/29/25 07:25 04/29/25 07:25 04/29/25 07:25 04/29/25 07:25
Physical Exam
Constitutional: No Acute Distress, Comfortable and Non-toxic
Eyes: Sclera Anicteric
Pulmonary: Non Labored
Gastrointestinal: Soft and Non Distended
Genito-Urinary: Other (left PCN with clear urine)
Extremities: Negative Edema or Cyanosis
Neurological: Awake and Alert
Psychological: Calm
Objective Data
Lab Data
Lab Results
04/29/25 06:42
04/29/25 06:42
Estimated Creat Clear 100 ml/min 04/29/25 06:42
Total Bilirubin 0.4 mg/dl (0.2-1.3) 04/24/25 17:03
AST 23 U/L (14-36) 04/24/25 17:03
ALT 29 U/L (0-35) 04/24/25 17:03
Alkaline Phosphatase 132 U/L (38-126) H 04/24/25 17:03
Most recent labs reviewed.
Micro Results:
04/24/25 16:35 Urine Culture - Final
Urine Escherichia coli - ESBL
Klebsiella pneumoniae
Staph aureus MRSA
Urine Culture Final 04/27/25-1053
CC: 100,000 CFU/ML Escherichia coli - ESBL
CC: 100,000 CFU/ML Klebsiella pneumoniae
CC: 100,000 CFU/ML Staph aureus MRSA
Isolation Precautions Required
Called to [id number] on 04/26/25 at 1055 by [email or web address]
Resistance due to extended spectrum beta lactamase.
Deacreased activity may occur with penicillins,
penicillin/inhibitor combinations, cephalosporins, and
monobactams.
Organism 1 Escherichia coli - ESBL
Organism 2 Klebsiella pneumoniae
Organism 3 Staph aureus MRSA
EC-ESBL K.PNEUMO MRSA
M.I.C. RX M.I.C. RX M.I.C. RX
--------- --- --------- --- --------- ---
Amoxicillin/Potas. Clavulanate 16/8 I <=8/4 S >4/2 R
Ampicillin >16 R >16 R >8 R
Ampicillin/Sulbactam >16/8 R 8/4 S
Aztreonam >16 R <=4 S
Cefazolin >16 R <=2 S
Cefepime >16 R
Ceftazidime >16 R
Ceftriaxone >2 R
Ertapenem <=0.5 S <=0.5 S
Ciprofloxacin >2 R <=0.25 S
Gentamicin <=2 S <=2 S <=4 S
Levofloxacin >4 R
Oxacillin >2 R
Meropenem <=1 S <=1 S
Nitrofurantoin-Urine Only <=32 S 64 I <=32 S
Piperacillin/Tazobactam <=8 S <=8 S
Tetracycline >8 R <=4 S <=4 S
Tobramycin <=2 S <=2 S
Trimethoprim/Sulfamethoxazole >2/38 R <=2/38 S <=0.5/9.5 S
Vancomycin 1 S
1. Escherichia coli - ESBL
M.I.C. RX
--------- ---
Amoxicillin/Potas. Clavulanate 18/05 I
Ampicillin >16 R
Ampicillin/Sulbactam >16/8 R
Aztreonam >16 R
Cefazolin >16 R
Cefepime >16 R
Ceftazidime >16 R
Ceftriaxone >2 R
Ertapenem <=0.5 S
Ciprofloxacin >2 R
Gentamicin <=2 S
Meropenem <=1 S
Nitrofurantoin-Urine Only <=32 S
Piperacillin/Tazobactam <=8 S
Tetracycline >8 R
Tobramycin <=2 S
Trimethoprim/Sulfamethoxazole >2/38 R
2. Klebsiella pneumoniae
M.I.C. RX
--------- ---
Amoxicillin/Potas. Clavulanate <=8/4 S
Ampicillin >16 R
Ampicillin/Sulbactam 8/4 S
Aztreonam <=4 S
Cefazolin <=2 S
Ertapenem <=0.5 S
Ciprofloxacin <=0.25 S
Gentamicin <=2 S
Meropenem <=1 S
Nitrofurantoin-Urine Only 64 I
Piperacillin/Tazobactam <=8 S
Tetracycline <=4 S
Tobramycin <=2 S
Trimethoprim/Sulfamethoxazole <=2/38 S
3. Staph aureus MRSA
M.I.C. RX
--------- ---
Amoxicillin/Potas. Clavulanate >4/2 R
Ampicillin >8 R
Gentamicin <=4 S
Levofloxacin >4 R
Oxacillin >2 R
Nitrofurantoin-Urine Only <=32 S
Tetracycline <=4 S
Trimethoprim/Sulfamethoxazole <=0.5/9.5 S
Vancomycin 1 S
Care Review
Plan reviewed with: Physician (Urology)
[2025-04-29] MEDS: INVANZ 60 MG IV (11:33)
[2025-04-29 12:55] VITALS: BP 183/74
--- NOTE | 2025-04-29 15:12 | CM ---
Addendum entered by Enrique Ruiz 04/29/25 15:43:
Per MD antibiotic switched to PO.
D/C plan: discharge back to her living arrangements at recovery house with PO antibiotic.
Original Note:
CM following re: discharge planning.
Reviewed pt's chart, met with pt.
Pt expressed to me her extremely upsetting feelings regarding senior care placement to get her IV antibiotic treatment and pt is requested to talk to the Dr to discuss an option of switching to PO antibiotic and to be discharged today. Also, pt
discussed an options of getting IV antibiotic on an out;patient level at and pt stated she does not want to wait till tomorrow. MD and RN are aware of the above.
Pt reports she lives in a recovery house and she will return back there.
D/C plan: most likely discharge back to her living arrangements at recovery house with PO antibiotic.
--- NOTE | 2025-04-29 15:28 | W.PN.UPDATE ---
Update Note
Progress Note Update
Patient visibly upset about waiting to have potential placement due to PICC line and outpatient IV antibiotic therapy (not feasible in current residential status @residential house).
Patient did not want to leave AMA but insistent on being discharged today w/ consideration of PO course.
ID recommendations reviewed - ideally IV Invanz through 05/06/25 based on prior UCx sensitivities.
However given patient's adamant desire to leave w/o PICC line, will plan for PO Bactrim DS BID x7 days through 05/06/25.
Afebrile, WBC normal.
D/c home today on Bactrim DS BID x7 days through 05/06/25
F/U w/ Dr. Lovett in 2 weeks for ULS preop visit to schedule final outpatient procedure for stone extraction
Maintain left PCN capped w/ dressing
D/w RN
D/w CM
--- NOTE | 2025-04-29 15:33 | W.DS.TRANS ---
DC Summary - [employer]
-
Discharge Instructions:
Discharge Diagnosis/Procedures encrusted left ureteral stents s/p PCNL, stent
extraction x2, left nephrostomy exchange
Diet Regular
Activity No strenuous activity
Additional Activity No strenuous lifting or heavy exercise for 7
days after surgery
Driving Restrictions As prior to admission
Bathing Restrictions OK to Shower
Blood Work not applicable
Wound Care not applicable
Instructions:
Stand-Alone Forms:
Changes to Home Medications: No
Discharge Medications:
DC Medications w/original date entered in [employer]
mirtazapine 15 mg tablet (Remeron) 30 mg PO HS Mental Health/Anxiety 04/28/23
buprenorphine HCl 2 mg sublingual tablet 16 mg sublingual DAILY 08/27/24
ibuprofen 400 mg tablet 400 mg PO Q6H PRN pain 04/03/25
sulfamethoxazole 800 mg-trimethoprim 160 mg tablet (Bactrim DS) 1 tab PO BID 7 days #14 tabs 04/29/25
Home Medication Changes
Pending Results: No
Total time spent discharging patient (in min): 35
[2025-04-29 15:50] VITALS: BP 144/89
== END 2025-04-29 17:00 | disposition home or self-care (01) | DRG 660 ==
LOC: 2 NORTH 14:00
PROVIDERS: Radiology Diagnostic Radiology; ADMITTING PHYSICIAN Surgery; CONSULT PHYSICIAN Internal Medicine Infectious Disease
PROC: 0T25X0Z Change Drainage Device in Kidney, External Approach (ICD-10-PCS; 2025-04-25)
PROC: 0TP98DZ Removal of Intraluminal Device from Ureter, Via Natural or Artificial Opening Endoscopic (ICD-10-PCS; 2025-04-25)
PROC: 0TC18ZZ Extirpation of Matter from Left Kidney, Via Natural or Artificial Opening Endoscopic (ICD-10-PCS; 2025-04-25)
PROC: 0T9130Z Drainage of Left Kidney with Drainage Device, Percutaneous Approach (ICD-10-PCS; 2025-04-25)
PROC: 0T778DZ Dilation of Left Ureter with Intraluminal Device, Via Natural or Artificial Opening Endoscopic (ICD-10-PCS; 2025-04-25)
PROC: BT1F1ZZ Fluoroscopy of Left Kidney, Ureter and Bladder using Low Osmolar Contrast (ICD-10-PCS; 2025-04-26)
DX: T83.592A Infection and inflammatory reaction due to indwelling ureteral stent, initial encounter (principal); N39.0 Urinary tract infection, site not specified; Z16.12 Extended spectrum beta lactamase (ESBL) resistance; Z16.24 Resistance to multiple antibiotics; N13.9 Obstructive and reflux uropathy, unspecified; N26.1 Atrophy of kidney (terminal); N20.0 Calculus of kidney; F32.A Depression, unspecified; F41.9 Anxiety disorder, unspecified; F17.210 Nicotine dependence, cigarettes, uncomplicated; B96.20 Unspecified Escherichia coli [E. coli] as the cause of diseases classified elsewhere; B95.2 Enterococcus as the cause of diseases classified elsewhere; Y84.6 Urinary catheterization as the cause of abnormal reaction of the patient, or of later complication, without mention of misadventure at the time of the procedure; Y92.9 Unspecified place or not applicable; Y73.2 Prosthetic and other implants, materials and accessory gastroenterology and urology devices associated with adverse incidents; Z65.3 Problems related to other legal circumstances; Z98.51 Tubal ligation status; Z56.0 Unemployment, unspecified
CPT/HCPCS: 50435; 74420; 76000; 80048; 80053; 81003; 81015; 85025; 86850; 86900; 86901; 87077; 87086; 87147; 87186; A4300; C1726; C1729; C1758; C1769; J1335

== ENCOUNTER 2025-08-05 06:20 | Day surgery (SDC) | payer OTHER, SELFPAY ==
[2025-08-05] VITALS (12 sets, daily range): BP systolic 92–128; BP diastolic 64–88; BMI 32.2
[2025-08-05] MEDS: NORMOSOL-R/PLASMALYTE-A 1000 IV (08:22)
--- NOTE | 2025-08-05 08:33 | PTCARENOTE ---
Patient states that she drank coffee with powdered cream at 0515, a few sips and Anesthesia made aware. Enio Chambers aware and orders to proceeded with surgery. Will monitor patient.
[2025-08-05] MEDS: ZOFRAN 4 MG IV (11:03)
== END 2025-08-05 12:20 | disposition home or self-care (01) ==
LOC: SDS 06:20
PROVIDERS: ATTENDING PHYSICIAN Surgery
DX: N20.1 Calculus of ureter (principal); N26.1 Atrophy of kidney (terminal); Z87.442 Personal history of urinary calculi; Z87.440 Personal history of urinary (tract) infections; Z98.890 Other specified postprocedural states
CPT/HCPCS: 52356; 74018; 76000; 82365; C1769; C2617; J1335